=== PATIENT | male | born 1960 | race Caucasian/White ===

== ENCOUNTER 2017-03-07 12:10 | Day surgery (SDC) | payer OTHER ==
[~2017-03-07] VITALS: Ht 172.7 cm; Wt 104.3 kg
[~2017-03-07 12:10] MED LIST: ADVAIR 250-501 EACH INH; LEVOTHYROXINE100 MCG PO; OMEPRAZOLE20 MG PO; PRAVASTATIN SOD20 MG PO; VENTOLIN HFA18 GM INH
--- NOTE | 2017-03-07 15:04 | NUR ---
03/07/17 1504 Liz Lira 1456 - PT ARRIVED TO PACU. MAINTAINING OWN AIRWAY. PT DENIES PAIN AND NAUSEA.
--- NOTE | 2017-04-02 12:15 | OR ---
[facility] [address] [place], [place] [address] Signed DATE OF PROCEDURE: 03/07/17 PREOPERATIVE DIAGNOSES History of esophageal stricture. Episode of food impaction requiring upper endoscopy, January 09, 2017. History of serrated adenoma of colon, 2011. POSTOPERATIVE DIAGNOSES No evidence of esophageal stricture or even inflammation. Stomach and duodenum normal. Diverticulosis of sigmoid and left colon. Polyps x4 of colon (excised). PROCEDURES Esophagogastroduodenoscopy with biopsy. Total colonoscopy to cecum with snare polypectomy x1 and cold morcellation polypectomy x3. SURGEON: Allan Duncan MD. ANESTHESIA: Intravenous sedation, Fentanyl 150 mcg, Versed 7 mg (total). INDICATION This 57-year-old white man is patient of Dr. Palmer Posey and has had problems of dysphagia over time. He has undergone esophageal dilation approximately 5 years ago. He had a food impaction requiring an emergency upper endoscopy on January 09, 2017, had inflammatory changes to the distal esophagus. There was no evidence of Young's epithelium and no eosinophilic esophagitis on biopsies. He has been treated with proton pump inhibitor medication. He recently has no dysphagia at all and has been doing well. He is admitted to undergo upper endoscopy and possible dilation depending on clinical findings at this time. Additionally, he has been known to have a serrated adenoma on colonoscopy in 2011. Surveillance colonoscopy has been recommended. The risks of bleeding, infection, and perforation related to both procedures have been reviewed and he understands and wished to proceed. FINDINGS Upper endoscopy was essentially normal. The esophagus had no evidence of stricture whatsoever. Biopsies were obtained to assess for eosinophilic esophagitis nevertheless. Stomach, duodenum and so forth were normal. CLOtest was negative. On colonoscopy, the prep was good. Complete colonoscopy was undertaken of the cecum. There were 4 small polyps, all excised. There were diverticular changes of sigmoid and left colon. Electronically Signed By: ALLAN DUNCAN MD 04/02/17 1215 PATIENT NAME: CHIKIS MANUEL OPERATIVE REPORT DATE OF : 58 PHYSICIAN: ALLAN DUNCAN MD REPORT #: [id number] REPORT IS CONFIDENTIAL AND NOT TO BE RELEASED WITHOUT AUTHORIZATION [facility] [address] [place], [place] [address] Signed DESCRIPTION OF PROCEDURE The patient was brought to the endoscopy suite and given topical Hurricaine spray hypopharyngeal anesthesia and placed in lateral decubitus position. He was given intravenous sedation to the point of slurred speech and nystagmus. A bite block was placed. The Olympus video upper endoscope was passed by hypopharynx. Vocal cords were normal. Scope was advanced to the esophagus throughout its length and it was entirely normal with no evidence whatsoever of stricture, neoplasm, Young's epithelium, or other problem. The scope was advanced to the stomach which was insufflated with air. Rugal folds were normal as was the pylorus. The pylorus was traversed with the scope and the duodenum was normal. Biopsies were obtained to assess for celiac disease. The scope was withdrawn. Biopsies taken of the antrum for both JUD and pathologic testing. Retroflexed view showed the flap valve to be somewhat loose, but not with a large hiatal hernia in any way. The scope was withdrawn to the distal esophagus. No evidence of stricture neoplasm, Young's epithelium, or cancer was noted. Biopsies were obtained there as well in the midesophagus to assess for eosinophilic esophagitis. The scope was then removed. Plans were then made for colonoscopy. The table was rotated and additional sedation given. Digital rectal examination was performed, which was normal. An Olympus video colonoscope was passed in the rectum and manipulated throughout the colon ultimately intubating the cecum itself. The ileocecal valve and appendiceal orifice were normal. S cope was withdrawn and a small sessile polyp was noted in the ascending colon, which was excised with cold morcellation technique. Snare polypectomy could not be undertaken due to anatomic factors. Scope was further withdrawn and transverse colonic polyp which was small was excised cold snip technique. Further withdrawal of scope showed two other small polyps in the splenic flexure and left colon. Diverticular changes were noted in the sigmoid. The small polyps were excised. Retroflexed view of the rectum was normal. Scope was removed and the patient taken to recovery room in good condition CONCLUDING DIAGNOSES No evidence of stricture neoplasm or other signs of impediment to esophageal swallowing. Dilation not performed at this time. Colon with diverticulosis and small polyps all excised. PLAN We recommend continued use of PPI medication. Recommend high-fiber diet and repeat colonoscopy in 3 years. Electronically Signed By: ALLAN DUNCAN MD 04/02/17 0432 PATIENT NAME: CHIKIS MANUEL OPERATIVE REPORT DATE OF : 58 PHYSICIAN: ALLAN DUNCAN MD REPORT #: [id number] REPORT IS CONFIDENTIAL AND NOT TO BE RELEASED WITHOUT AUTHORIZATION [address] [address] Signed MD VASILE Hoffman/Modl /[id number] cc: Palmer Posey MD Electronically Signed By: ALLAN DUNCAN MD 04/02/17 1215 PATIENT NAME: CHIKIS MANUEL OPERATIVE REPORT DATE OF : 58 PHYSICIAN: ALLAN DUNCAN MD REPORT #: [id number] REPORT IS CONFIDENTIAL AND NOT TO BE RELEASED WITHOUT AUTHORIZATION
== END 2017-03-07 15:35 | disposition home or self-care (01) ==
LOC: OPS 12:10 → DS 12:10 → OPS 13:00 → DS 13:00 → OPS 15:35
PROVIDERS: Surgery
PROC: 0DBL8ZX Excision of Transverse Colon, Via Natural or Artificial Opening Endoscopic, Diagnostic (ICD-10-PCS; 2017-03-07)
PROC: 0DB98ZX Excision of Duodenum, Via Natural or Artificial Opening Endoscopic, Diagnostic (ICD-10-PCS; 2017-03-07)
PROC: 0DB28ZX Excision of Middle Esophagus, Via Natural or Artificial Opening Endoscopic, Diagnostic (ICD-10-PCS; 2017-03-07)
PROC: 0DB38ZX Excision of Lower Esophagus, Via Natural or Artificial Opening Endoscopic, Diagnostic (ICD-10-PCS; 2017-03-07)
PROC: 0DB68ZX Excision of Stomach, Via Natural or Artificial Opening Endoscopic, Diagnostic (ICD-10-PCS; 2017-03-07)
PROC: 0DBM8ZX Excision of Descending Colon, Via Natural or Artificial Opening Endoscopic, Diagnostic (ICD-10-PCS; principal; 2017-03-07 13:00)
PROC: 0DBK8ZX Excision of Ascending Colon, Via Natural or Artificial Opening Endoscopic, Diagnostic (ICD-10-PCS; 2017-03-07 13:00)
DX: Z12.11 Encounter for screening for malignant neoplasm of colon (principal); D12.2 Benign neoplasm of ascending colon; D12.4 Benign neoplasm of descending colon; D12.3 Benign neoplasm of transverse colon; K29.50 Unspecified chronic gastritis without bleeding; K57.30 Diverticulosis of large intestine without perforation or abscess without bleeding; E78.00 Pure hypercholesterolemia, unspecified; K21.9 Gastro-esophageal reflux disease without esophagitis; Z87.891 Personal history of nicotine dependence; Z86.010 Personal history of colon polyps; Z79.899 Other long term (current) drug therapy
CPT/HCPCS: 99152; 99153; J2250; J3010; J7120

== ENCOUNTER 2020-02-27 12:49 | Day surgery (SDC) | payer OTHER ==
[~2020-02-27] VITALS: Ht 172.7 cm; Wt 111.1 kg
--- NOTE | 2020-02-28 16:05 | PATH ---
[facility] [address] [place], [place] [address] Signed SPECIMEN(S): A COLON POLYP AT 45 CM SPECIMEN(S): B COLON POLYP AT 30 CM SPECIMEN(S): C COLON POLYP AT 35 CM SPECIMEN SOURCE: A. COLON POLYP AT 45 CM B. COLON POLYP AT 30 CM C. COLON POLYP AT 35 CM CLINICAL HISTORY: Colonoscopy. History of colon polyps. Postop: Polyps x 3, diverticulosis. MICROSCOPIC DESCRIPTION: Histologic sections of all submitted blocks are examined by light microscopy. These findings, together with the gross examination, support the pathologic diagnosis. FINAL PATHOLOGIC DIAGNOSIS: A. Colon polyp at 45 cm, biopsy: - Tubular adenoma (one fragment). B. Colon polyp at 30 cm, biopsy: - Tubular adenoma (one fragment). C. Colon polyp at 35 cm, biopsy: - Inflamed polypoid colonic mucosa with focal slight adenomatous change and superficial epithelial erosion. JVR:[facility]:C2NR GROSS DESCRIPTION: Three specimens are received in three containers, labeled "ST." A. The specimen, labeled "ST, colon polyp at 45 cm," is received in formalin and consists of one cantrell soft tissue fragment that measures 0.1 cm in greatest dimension. The specimen is entirely submitted in cassette (A1). B. The specimen, labeled "ST, colon polyp at 30 cm," is received in formalin and consists of one cantrell soft tissue fragment that measures 0.7 cm in greatest dimension. The specimen is bisected and entirely submitted in cassette (B1). C. The specimen, labeled "ST, colon polyp at 35 cm," is received in formalin and consists of two cantrell soft tissue fragments that measure 0.2 cm in greatest dimension. The specimen is entirely submitted in cassette (C1). JS (under the direct supervision of a pathologist) PATIENT NAME: CHIKIS MANUEL PATHOLOGY DATE OF : 58 REPORT #: [id number] PHYSICIAN: HOANG PATHOLOGY PCP: CHEN HAY MD REPORT IS CONFIDENTIAL AND NOT TO BE RELEASED WITHOUT AUTHORIZATION [facility] [address] [place], [place] [address] Signed The Gross Description was prepared using a voice recognition system. The report was reviewed for accuracy; however, sound-alike word errors, addition and/or deletions may occur. If there is any question about this report, please contact Client Services. PERFORMING LABORATORY: The technical component was performed by [facility], [address] [place] [address] ([employer] Agent: Zeynep Mccoy MD; CLIA# [id number]). Professional [place] [address] ([employer] Agent: Palmer Beard M.D.). Diagnostician: Palmer Beard MD Pathologist Electronically Signed 02/28/2020 Copies: ~ PATIENT NAME: CHIKIS MANUEL PATHOLOGY DATE OF : 58 REPORT #: [id number] PHYSICIAN: HOANG WAGN PCP: CHEN HAY MD REPORT IS CONFIDENTIAL AND NOT TO BE RELEASED WITHOUT AUTHORIZATION
--- NOTE | 2020-02-29 13:18 | OR ---
[facility] [address] [place], [place] [address] Signed DATE OF OPERATION: SURGEON: Allan Duncan MD PREOPERATIVE DIAGNOSES: 1. History of adenomatous polyps, in February 2017. 2. Ongoing evaluation for possible prostate cancer (PSA 12). POSTOPERATIVE DIAGNOSES: 1. Sigmoid and left-sided diverticulosis. 2. Polyps x3 (45 cm, 35 cm, 30 cm). PROCEDURES: Total colonoscopy to cecum with cold morcellation polypectomy x2 and hot snare polypectomy x1. ANESTHESIA: Intravenous sedation, fentanyl 100 mcg, Versed 7 mg. INDICATION: This 60-year-old white man is a patient of Dr. Posey and known to me from the past having undergone colonoscopy in 2017. At that time, he was noted to have a tubular adenoma of the right colon. He does have family history of colon cancer. His symptom free as regard to colon, though he is under evaluation for elevated PSA level of 12, concerning for prostate cancer. He is here for surveillance colonoscopy understand the risks of bleeding, infection, and perforation. FINDINGS: The prep was adequate. Complete colonoscopy was undertaken of the cecum without question. Had numerous diverticula of the sigmoid and left colon. He had a sessile polyp at 35 cm excised with hot snare polypectomy technique. A small polyp at 45 cm as well as 30 cm excised with cold morcellation technique. There were no other findings of concern. DESCRIPTION OF PROCEDURE: The patient was brought to the endoscopy suite and placed in lateral decubitus position, given intravenous sedation to the point of slurred speech and nystagmus. Digital rectal examination was normal. An Olympus video colonoscope was passed in the rectum and manipulated throughout the colon noting diverticula of the sigmoid and left colon. Scope was ultimately advanced Electronically Signed By: ALLAN DUNCAN MD 02/29/20 1318 PATIENT NAME: CHIKIS MANUEL OPERATIVE REPORT DATE OF : 58 REPORT #: [id number] PHYSICIAN: ALLAN DUNCAN MD PCP: CHEN POSEY MD REPORT IS CONFIDENTIAL AND NOT TO BE RELEASED WITHOUT AUTHORIZATION [facility] [address] [place], [place] [address] Signed to the cecum. Irrigation was undertaken and careful withdrawn, from that point showed no abnormality until approximately 45 cm from the anal verge, this was a small adenomatous appearing polyp based on narrow band imaging, excised with cold morcellation technique. The scope was further withdrawn and diverticula was noted and then at approximately 35 cm, a larger somewhat friable and relatively sessile polyp was noted, this was excised with hot snare polypectomy technique. Additional polyp about 30 cm from the anal verge was noted, this was somewhat smaller and did not have obvious boundaries to it. This was multiple biopsied, likely with complete ablation. Further withdrawal showed only diverticulosis of the sigmoid. Retroflexed view of the rectum was normal. The prostate had been examined and was symmetric in without obvious nodule and not particularly enlarged in a way. Retroflexed view was normal. The scope was removed and the patient was taken to recovery room in good condition. CONCLUDING DIAGNOSES: 1. Polyps x3. 2. Elevated PSA. PLAN: Recommend repeat colonoscopy in 3 years, sooner if clinically indicated. He will return to the ongoing care of Dr. Posey in the meantime. Allan Duncan MD JM/MODL /[id number] cc: Chen Posey MD Copies: CHEN POSEY MD ~ Electronically Signed By: ALLAN DUNCAN MD 02/29/20 1318 PATIENT NAME: CHIKIS MANUEL OPERATIVE REPORT DATE OF : 58 REPORT #: [id number] PHYSICIAN: ALLAN DUNCAN MD PCP: CHEN POSEY MD REPORT IS CONFIDENTIAL AND NOT TO BE RELEASED WITHOUT AUTHORIZATION
== END 2020-02-27 14:30 | disposition home or self-care (01) ==
LOC: OPS 12:49 → DS 12:52 → OPS 14:00
PROVIDERS: Surgery
PROC: 0DBE8ZX Excision of Large Intestine, Via Natural or Artificial Opening Endoscopic, Diagnostic (ICD-10-PCS; 2020-02-27)
PROC: 0DBE8ZZ Excision of Large Intestine, Via Natural or Artificial Opening Endoscopic (ICD-10-PCS; principal; 2020-02-27 14:00)
DX: Z12.11 Encounter for screening for malignant neoplasm of colon (principal); D12.6 Benign neoplasm of colon, unspecified; K63.3 Ulcer of intestine; K57.30 Diverticulosis of large intestine without perforation or abscess without bleeding; C61 Malignant neoplasm of prostate; J45.909 Unspecified asthma, uncomplicated; K21.9 Gastro-esophageal reflux disease without esophagitis; D64.9 Anemia, unspecified; Z79.899 Other long term (current) drug therapy; Z86.010 Personal history of colon polyps; Z87.891 Personal history of nicotine dependence
CPT/HCPCS: 99153; G0500; J2250; J3010; J7121

== ENCOUNTER 2023-08-22 12:45 | Day surgery (SDC) | payer OTHER ==
[~2023-08-22] VITALS: Ht 172.7 cm; Wt 90.9 kg
[2023-08-22 13:24] VITALS: BP 110/62
[2023-08-22 15:00] VITALS: BP 99/56
--- NOTE | 2023-08-22 15:31 | NUR ---
08/22/23 1531 He,Brook Skinner 1446: PATIENT ARRIVED TO PACU DROWSY, BUT AWAKE. DENIES PAIN. 1500: DR. DUNCAN AT BEDSIDE TALKING WITH PATIENT. 1510: DISCHRGE INSTRUCTIONS GIVEN TO PATIENT. PATIENT ASSISTED TO SIT ON BEDSIDE. 1524: PATIENT DRESSED INDEPENDENTLY. STAND BY ASSIST WHILE WALKING TO BATHROOM. PATIENT DISCHARGED TO HOME VIA WHEELCHAIR.
--- NOTE | 2023-08-23 08:43 | OR ---
[facility] [address] [place], [place] [address] Signed DATE OF OPERATION: 08/22/2023 SURGEON: Allan Duncan MD PREOPERATIVE DIAGNOSES: 1. Family history of colon cancer. 2. History of polyps 2019. POSTOPERATIVE DIAGNOSES: 1. Sigmoid diverticulosis. 2. Polyps x3. PROCEDURE: Total colonoscopy to cecum with cold snare polypectomy x1 and cold morcellation polypectomy x2. ANESTHESIA: Intravenous sedation; fentanyl 100 mcg and Versed 6 mg. INDICATION: This 63-year-old white man is a patient of Dr. Marci Mccrary, well known to me from the past. He last underwent colonoscopy in February of 2020. He was noted to have sigmoid and left-sided diverticulosis as well as three polyps at 45, 35 and 30 cm. He does have family history of colon cancer in his father. He is admitted at this time to undergo colonoscopy for surveillance. He currently has no symptoms of bleeding, diarrhea, or constipation. Of note, he has been diagnosed with prostate carcinoma based on elevated PSA and three prostate biopsies. Treatment planning for that is ongoing. DESCRIPTION OF PROCEDURE: The patient was brought to the endoscopy suite and placed in the lateral decubitus position; given intravenous sedation to the point of slurred speech and nystagmus. Digital rectal examination was normal. An Olympus video colonoscope was passed in the rectum and manipulated throughout the colon noting diverticular changes of the sigmoid and left colon. The scope was ultimately advanced to the cecum. There was a less well prepped cecum. Irrigation was undertaken and adequate visualization noted. The scope was then withdrawn and examination showed no sign of abnormality until the left colon where a small polyp was noted, this was excised with cold snare technique. The scope was further withdrawn. Another small polyp was noted, also similarly excised. A sessile polyp, which was Electronically Signed By: ALLAN DUNCAN MD 08/23/23 0843 PATIENT NAME: CHIKIS MANUEL OPERATIVE REPORT DATE OF : 58 REPORT #: [id number] PHYSICIAN: ALLAN DUNCAN MD PCP: MARCI MCCRARY MD REPORT IS CONFIDENTIAL AND NOT TO BE RELEASED WITHOUT AUTHORIZATION [facility] [address] [place], [place] [address] Signed slightly bigger, was excised with cold snare technique at about 40 cm or so. Diverticula are certainly noticed upon withdrawal of the scope more fully. Retroflexed view of the rectum was normal. The scope was removed and the patient was taken to the recovery room in good condition. CONCLUDING DIAGNOSIS: Polyps x3 and diverticulosis. PLAN: Recommend repeat colonoscopy in 3 to 5 years, sooner if symptoms should occur. He will return to the ongoing care of Dr. Mccrary. MD VASILE Hoffman/ARTEMIO /[id number] cc: Marci Mccrary MD Copies: MARCI MCCRARY DMD ~ Electronically Signed By: ALLAN DUNCAN MD 08/23/23 0843 PATIENT NAME: CHIKIS MANUEL OPERATIVE REPORT DATE OF : 58 REPORT #: [id number] PHYSICIAN: ALLAN DUNCAN MD PCP: MARCI MCCRARY MD REPORT IS CONFIDENTIAL AND NOT TO BE RELEASED WITHOUT AUTHORIZATION
--- NOTE | 2023-08-24 09:39 | PATH ---
[facility] [address] [facility] [place], [place] [address] Signed SPECIMEN(S): A DESCENDING POLYP SPECIMEN(S): B COLON POLYP, 40 CM SPECIMEN(S): C COLON POLYP, 35 CM SPECIMEN SOURCE: A. DESCENDING POLYP B. COLON POLYP, 40 CM C. COLON POLYP, 35 CM CLINICAL HISTORY: History of polyps/diverticulosis/family history of polyps FINAL PATHOLOGIC DIAGNOSIS: A. Colon, descending, polypectomy: - Tubular adenoma B. Colon, 40 cm, polypectomy: - Colonic mucosa with no significant pathologic changes C. Colon, 30 cm, polypectomy: - Tubular adenoma BRP MICROSCOPIC EXAMINATION: Histologic sections of all submitted blocks are examined by light microscopy. These findings, together with the gross examination, support the pathologic diagnosis. GROSS DESCRIPTION: A. The specimen, labeled and designated "Taillon, descending polyp," is received in formalin and consists of one cantrell soft tissue fragment, 0.4 cm. Entirely submitted in (A1). B. The specimen, labeled and designated "Taillon, colon polyp at 40 cm," is received in formalin and consists of three cantrell soft tissue fragments, ranging from 0.2-0.3 cm. Entirely submitted in (B1). C. The specimen, labeled and designated "Taillon, colon polyp at 35 cm," is received in formalin and consists of one cantrell soft tissue fragment, 0.3 cm. Entirely submitted in (C1). VB (under the direct supervision of a pathologist) The Gross Description was prepared using a voice recognition system. The report was reviewed for accuracy; however, sound-alike word errors, addition and/or deletions may occur. If there is any question about this report, please contact Client Services. PATIENT NAME: CHIKIS MANUEL PATHOLOGY DATE OF : 58 REPORT #: [id number] PHYSICIAN: HOANG WANG PCP: MARCI MCCRARY MD REPORT IS CONFIDENTIAL AND NOT TO BE RELEASED WITHOUT AUTHORIZATION [facility] [address] [place], [place] [address] Signed ADDITIONAL NOTES: Immunohistochemical and/or in situ hybridization studies if performed in this case included appropriate positive controls that reacted as expected. This test was developed and its performance characteristics determined by [facility]. It has not been cleared or approved by the U.S. Food and Drug Administration. The FDA has determined that such clearance or approval is not necessary. This test is used for clinical purposes. It should not be regarded as investigational or for research. [facility] is certified under the Clinical Laboratory Improvement Amendments of 1988 (CLIA) as qualified to perform high complexity clinical laboratory testing. PERFORMING LABORATORY: Technical component was performed by [facility], [address] [place] [address] (CLIA# [id number]). Professional interpretation was performed by [facility], [address] [place] [address] (CLIA#: [id number]). Diagnostician: Leonid Babb MD Pathologist Electronically Signed 08/24/2023 Copies: ~ PATIENT NAME: CHIKIS MANUEL PATHOLOGY DATE OF : 58 REPORT #: [id number] PHYSICIAN: HOANG WANG PCP: MARCI MCCRARY MD REPORT IS CONFIDENTIAL AND NOT TO BE RELEASED WITHOUT AUTHORIZATION
== END 2023-08-22 15:24 | disposition home or self-care (01) ==
LOC: DS 12:45 → OPS 12:45 → DS 12:50 → OPS 14:00 → DS 14:00 → OPS 15:24
PROVIDERS: ATTEND Surgery
PROC: 0DBM8ZZ Excision of Descending Colon, Via Natural or Artificial Opening Endoscopic (ICD-10-PCS; 2023-08-22)
PROC: 0DBG8ZX Excision of Left Large Intestine, Via Natural or Artificial Opening Endoscopic, Diagnostic (ICD-10-PCS; principal; 2023-08-22 14:00)
DX: Z12.11 Encounter for screening for malignant neoplasm of colon (principal); D12.4 Benign neoplasm of descending colon; D12.6 Benign neoplasm of colon, unspecified; K57.30 Diverticulosis of large intestine without perforation or abscess without bleeding; J45.909 Unspecified asthma, uncomplicated; C61 Malignant neoplasm of prostate; Z79.899 Other long term (current) drug therapy; Z86.010 Personal history of colon polyps
CPT/HCPCS: 88305; 99153; G0500; J2250; J3010; J7121

== ENCOUNTER 2024-04-07 22:28 | Emergency (ER) | payer MEDICARE, OTHER ==
[~2024-04-07] VITALS: Ht 172.7 cm; Wt 95.2 kg
[2024-04-07] MEDS ORDERED: MORPHINE SULFATE 4 MG/ML VIAL IV ONE (22:45)
[2024-04-07] MEDS ORDERED: SODIUM CHLORIDE 0.9% 1,000 ML IV ONE (22:45)
[2024-04-07] MEDS ORDERED: ondansetron HCL 4 MG/2 ML VIAL IV ONE (22:45)
[2024-04-07 22:56] LABS: HEMATOCRIT 36.2 % (35.0-50.0); HEMOGLOBIN 12.3 g/dL (12.0-18.0); MCHC 34.1 g/dl (30-36); MCV 99.7 fl (81-99); PLATELET COUNT 223 K/uL (140-440); RBC 3.63 M/ul (4.3-5.7); RDW 15.7 (10.5-15.0)
[2024-04-07] MEDS ORDERED: HYDROmorphone HCL 1 MG/ML SYR IV PRN (23:15)
[2024-04-07 23:24] LABS: BANDS, MANUAL DIFF 2; EOSINOPHILS, MANUAL DIFF 3; LYMPHOCYTES, MANUAL DIFF 6; MONOCYTES, MANUAL DIFF 6; NEUTROPHILS, MANUAL DIFF 83
[2024-04-07 23:26] LABS: ALBUMIN 3.9 g/dL (3.4-5.0); ALBUMIN/GLOBULIN RATIO 1.18 (1.1-2.4); BILIRUBIN, TOTAL 0.6 ng/dL (0.2-1.0); CALCIUM 8.6 mg/dL (8.5-10.1); PROTEIN, TOTAL 7.2 g/dL (6.4-8.2)
[2024-04-07] MEDS ORDERED: KETOROLAC TROMETHAMINE 30 MG/ML VIAL IV ONE (23:30)
[2024-04-07] MEDS ORDERED: POTASSIUM CHLORIDE 10 MEQ TABCR PO ONE (23:45)
[2024-04-07] MEDS ORDERED: PROCHLORPERAZINE EDISYLATE 10 MG/2 ML VIAL IV ONE (23:45)
[2024-04-07] MEDS ORDERED: fentaNYL citrate 100 MCG/2 ML VIAL IV ONE (23:45)
[2024-04-08 00:16] LABS: BILIRUBIN, URINE NEGATIVE (negative); BLOOD/HGB, URINE NEGATIVE (Negative); KETONE, URINE NEGATIVE (Negative); LEUK ESTERASE, URINE NEGATIVE (negative); NITRITE, URINE NEGATIVE (negative)
[2024-04-08] MEDS ORDERED: ONDANSETRON ODT8 MG PO ×2 (01:39)
[2024-04-08] MEDS ORDERED: HYDROCODON-ACE1 EA10 PO ×2 (01:39)
[2024-04-08] MEDS ORDERED: ONDANSETRON 4 MG HOME.PACK SL ONE (02:00)
[2024-04-08] MEDS ORDERED: HYDROCODONE BIT/ACETAMINOPHEN 5/325 MG 1 TAB HOME.PACK PO ONE (02:00)
[2024-04-08 02:21] VITALS: BP 155/75
[2024-04-09] MEDS ORDERED: OMEPRAZOLE40 MG PO ×2 (07:37)
[2024-04-09] MEDS ORDERED: VITAMIN B-1100 MG PO ×2 (07:38)
[2024-04-09] MEDS ORDERED: FOLIC ACID1 MG PO ×2 (07:38)
[2024-04-09] MEDS ORDERED: VITAMIN B-121000 MCG PO ×2 (07:38)
[2024-04-09] MEDS ORDERED: VENTOLIN HFA18 GM INH ×2 (14:00)
== END 2024-04-08 02:10 | disposition home or self-care (01) ==
LOC: ED 22:28
PROVIDERS: Family Medicine
DX: K80.50 Calculus of bile duct without cholangitis or cholecystitis without obstruction (principal); K82.8 Other specified diseases of gallbladder; R16.1 Splenomegaly, not elsewhere classified; J44.9 Chronic obstructive pulmonary disease, unspecified; Z87.891 Personal history of nicotine dependence; Z79.899 Other long term (current) drug therapy
CPT/HCPCS: 36415; 74177; 76705; 80053; 81003; 83690; 85025; 96361; 96375; 99284-25; A9270; J0780; J1170; J1885; J2270; J2405; J7030

== ENCOUNTER 2024-04-08 12:18 | Observation (INO) | payer MEDICARE, OTHER ==
[~2024-04-08] VITALS: Ht 172.7 cm; Wt 97.1 kg
[~2024-04-08 12:18] MED LIST changes: +HYDROCODON-ACE1 EA10 PO; +ONDANSETRON ODT8 MG PO
--- OUTSIDE RECORDS SUMMARY | 2024-04-08 12:24 | XMS ---
PreManage Notification: CHIKIS MANUEL Security Arch Support Technician Events No recent Security Events currently on file CRITERIA MET - [facility] - 2 Visits in 30 Days CARE PROVIDERS -, [facility] Dentist: Ticket Puller [facility] [place] PHONE: [phone] -[place]- Dentist: Ticket Puller [facility] PHONE: [phone] Elio has no Care Guidelines for this patient. Freddie VISIT COUNT (12 MO.) [address] [place] [address] TOTAL 2 NOTE: Visits indicate total known visits. ED/UCC VISIT TRACKING (12 MO.) 04/08/2024 12:18 [facility] [place] TYPE: Emergency COMPLAINT: - ABDOMINAL PAIN 04/07/2024 22:28 [facility] [place] TYPE: Emergency COMPLAINT: - ABD PAIN INPATIENT VISIT TRACKING (12 MO.) No inpatient visits to display in this time frame [email or web address]
[2024-04-08] MEDS ORDERED: CEFTRIAXONE/SODIUM CHLORIDE 2 GM/100 ML PIGGYBACK IV ONE (13:15)
[2024-04-08] MEDS ORDERED: LACTATED RINGER'S 1,000 ML IV PRN (13:15)
[2024-04-08] MEDS ORDERED: HYDROmorphone HCL 1 MG/ML SYR IV PRN ×3 (13:15→22:00)
[2024-04-08 13:22] LABS: BASOPHILS 0.3 % (0-2); EOSINOPHILS 0.9 % (0-6); HEMATOCRIT 37.3 % (35.0-50.0); HEMOGLOBIN 12.9 g/dL (12.0-18.0); LYMPHOCYTES 3.3 % (24-44); MCH 34.5 (27-36); MCHC 34.7 g/dl (30-36); MCV 99.4 fl (81-99); MONOCYTES 6.6 % (0-12); NEUTROPHILS 88.9 % (39-80); PLATELET COUNT 224 K/uL (140-440); RBC 3.75 M/ul (4.3-5.7); RDW 15.5 (10.5-15.0)
[2024-04-08 13:28] LABS: INR 1.04 (0.80-1.30); PROTIME 13.2 Sec (11.2-14.2)
[2024-04-08 13:31] LABS: PARTIAL THROMBOPLASTIN TIME 32.7 Sec (22.9-41.3)
[2024-04-08 13:33] LABS: ALBUMIN 3.6 g/dL (3.4-5.0); ALBUMIN/GLOBULIN RATIO 1.09 (1.1-2.4); ANION GAP 13.7 (7-21); BUN/CREATININE RATIO 6.38 (6.0-28.6); CALCIUM 8.3 mg/dL (8.5-10.1); CREATININE, SERUM 0.94 mg/dL (0.70-1.30); POTASSIUM 3.7 mmol/L (3.5-5.1); PROTEIN, TOTAL 6.9 g/dL (6.4-8.2)
[2024-04-08 15:11] LABS: BILIRUBIN, URINE NEGATIVE (negative); BLOOD/HGB, URINE NEGATIVE (Negative); KETONE, URINE NEGATIVE (Negative); LEUK ESTERASE, URINE NEGATIVE (negative); NITRITE, URINE NEGATIVE (negative); PH, URINE 5.5 (5-7)
[2024-04-08] MEDS ORDERED: ACETAMINOPHEN 500 MG TAB PO ONE (16:45)
[2024-04-08] MEDS ORDERED: ACETAMINOPHEN 325 MG TAB PO PRN ×2 (17:15→21:45)
[2024-04-08] MEDS ORDERED: ondansetron HCL 4 MG/2 ML VIAL IV PRN ×2 (17:15→21:45)
[2024-04-08] MEDS ORDERED: SODIUM CHLORIDE 0.9% 1,000 ML IV SCH (17:15)
[2024-04-08 17:54] VITALS: BP 129/65
--- NOTE | 2024-04-08 18:34 | NUR ---
PATIENT ADMITTED TO MED SURG. PATIENT IS ON TELE 7, PER ED ORDER, PULSE IS 86, TEMP IS 100.5 ORAL POST TYLENOL UPON ARRIVAL AND 100.2 AT 30 MINUTE RECHECK. PATIENT IS USING I/S, RT IN TO SEE PATIENT AND DISCUSS HOME INHALERS. PATIENT REPORTS RUQ PAIN IS LESSENING TO 7/10 BUT GOT NO RELIEF WITH PREVIOUS IV DILAUDID. SCD'S ARE ON, LR @ 125.
--- NOTE | 2024-04-08 19:08 | NUR ---
C/O ABD PAIN 03/02, MEDICATED WITH DIALUDID 0.5MG IV, AWAKE, WATCHING TV, TURNS AND REPOSITIONS IN BED. IVF INFUSING, TELE IN PLACE
--- NOTE | 2024-04-08 19:35 | NUR ---
PHONE CALL TO MD BY URGENT CARE. TELEPHONE ORDERS RECEIVED AND REPEATED BACK TO VERIFY FOR IVF, PAIN MEDICATION, AND NEB TREATMENTS.
[2024-04-08] MEDS ORDERED: KETOROLAC TROMETHAMINE 30 MG/ML VIAL IV PRN (19:45)
[2024-04-08] MEDS ORDERED: LACTATED RINGER'S 1,000 ML IV SCH (19:45)
[2024-04-08] MEDS ORDERED: BUDESONIDE 0.5 MG/2 ML VIAL INH SCH (20:00)
[2024-04-08] MEDS ORDERED: ALBUTEROL/IPRATROPIUM 3 ML NEB INH SCH (20:00)
[2024-04-08 21:15] VITALS: BP 126/62
[2024-04-08 21:17] VITALS: BP 126/62
--- NOTE | 2024-04-08 21:35 | NUR ---
Pt awaker, alert and oriented. c/o RUQ pain, area tender, letty. temp 101.5 oral. 3 covers removed, room temp decreased to 68 from 74. Repeat back done with IS 10x's, tolered well. coop with assessment and vitals. on clear liquids, tolerating well, no s/sx n/v. aware of NPO after midnight. On room air, lungs clear bilat, dim at bases, received nebs earlier on shift. using IS appropriately. IVF infusing RAC, scds in place. Dr Rowe notified of pts temp 101.5, pt has orders for motrim/toradol and IV/po Tylenol.
--- NOTE | 2024-04-08 21:39 | NUR ---
will check temp again in 1-2hr
[2024-04-08] MEDS ORDERED: IBUPROFEN 600 MG TAB PO PRN (21:45)
[2024-04-08] MEDS ORDERED: ACETAMINOPHEN 1,000 MG/100 ML VIAL IV PRN (21:45)
--- NOTE | 2024-04-08 22:44 | NUR ---
temp 98.7 oral, medicated with Tylenol per abd pain. tolerating liquids well. scds inplace, tele#[address]
[2024-04-09] VITALS (12 sets, daily range): BP systolic 99–132; BP diastolic 47–74
--- NOTE | 2024-04-09 01:56 | NUR ---
uses call light, awake, alert and oriented, on room air. clear lungs, coop with vitals and tursning. c/o 8/10 RUQ abd pain, medicated with Dilaudid 0.6mg IV. no c/o n/v. and soft, tender R sided. ERNESTINA. uses urinal, voiding dark colored urine. NPO as of midnight. did own oral care. preop-post op expectations and personal questins asked by pt. answared to his comfort. SCDs in place. tele#[address] Dry non productive cough present at times
--- NOTE | 2024-04-09 03:40 | NUR ---
Resting, eyes closed, no s/sx distress, IVF infusing, Tele#[address] SCD's on, NPO
--- NOTE | 2024-04-09 04:23 | NUR ---
Awake, c/o 8/10 RUQ abd pain, abd soft, letty, tender. warm pad to area, medicated with Toradol. NPO tolerating well, does own oral care
[2024-04-09 05:25] LABS: BASOPHILS 0.2 % (0-2); EOSINOPHILS 0.7 % (0-6); HEMATOCRIT 31.9 % (35.0-50.0); HEMOGLOBIN 11.2 g/dL (12.0-18.0); LYMPHOCYTES 5.1 % (24-44); MCH 34.5 (27-36); MCHC 35.2 g/dl (30-36); MCV 98.2 fl (81-99); MONOCYTES 6.5 % (0-12); NEUTROPHILS 87.5 % (39-80); PLATELET COUNT 159 K/uL (140-440); RBC 3.25 M/ul (4.3-5.7); RDW 15.4 (10.5-15.0)
[2024-04-09 05:40] LABS: ALBUMIN 2.9 g/dL (3.4-5.0); ALBUMIN/GLOBULIN RATIO 0.97 (1.1-2.4); ANION GAP 11.4 (7-21); CALCIUM 8.1 mg/dL (8.5-10.1); CREATININE, SERUM 0.9 mg/dL (0.70-1.30); POTASSIUM 3.4 mmol/L (3.5-5.1); PROTEIN, TOTAL 5.9 g/dL (6.4-8.2)
--- NOTE | 2024-04-09 06:02 | NUR ---
Pt awake, NPO, tolerating well, does own oral care. c/o h/a. medicated with Tylenol. no c/o abd pain, no n/v. IVF infusing. Has voided QS light tea colored urine. turns and repositions self in bed.
[2024-04-09] MEDS ORDERED: OXYCODONE/APAP 5/325 TAB PO PRN (07:00)
[2024-04-09] MEDS ORDERED: DEXTROSE 5% - LACTATED RINGERS 1,000 ML IV SCH (07:00)
[2024-04-09] MEDS ORDERED: HYDROmorphone HCL 1 MG/ML SYR IV PRN (07:00)
[2024-04-09] MEDS ORDERED: ondansetron HCL 4 MG/2 ML VIAL IV PRN ×2 (07:00→09:15)
[2024-04-09] MEDS ORDERED: PROCHLORPERAZINE EDISYLATE 10 MG/2 ML VIAL IV PRN (07:00)
[2024-04-09] MEDS ORDERED: OMEPRAZOLE40 MG PO ×2 (07:37)
[2024-04-09] MEDS ORDERED: VITAMIN B-1100 MG PO ×2 (07:38)
[2024-04-09] MEDS ORDERED: FOLIC ACID1 MG PO ×2 (07:38)
[2024-04-09] MEDS ORDERED: VITAMIN B-121000 MCG PO ×2 (07:38)
--- NOTE | 2024-04-09 07:55 | NUR ---
REPORT RECIEVED FROM GRIS SINHA. PT AWAKE AND RESTING IN BED. SCDS RUNNING. LR RUNNING @ 125 ML/HR. DENIES ANY NEEDS, CALL LIGHT IN REACH
--- NOTE | 2024-04-09 08:32 | CONS ---
[facility] [address], [place] [address] Signed DATE OF CONSULTATION: 04/09/2024 CHIEF COMPLAINT: Right upper quadrant abdominal pain. 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 For almost two months now, he has been having intermittent, but worsening right upper quadrant abdominal pain. He said it is worse with fatty meals. He came to the emergency room and his white count was theoretically concerning and his ultrasound showed some sludge, but otherwise unremarkable. He was allowed to go home with some hydrocodone. He came back a few hours later with worsening pain. Repeat ultrasound shows again some small sludge in the gallbladder with a distended gallbladder. The wall was borderline at 3.5 mm, but the common bile duct is normal at 3.3 mm, but he did have a positive Jha sign. He also been recently diagnosed with prostate cancer and he is awaiting his radical prostatectomy at [facility] in May of this year. He has put off because of this pain in the right upper quadrant. The CT scan of his chest, abdomen, and pelvis in November did not show any metastatic disease. He had some chronic bilateral lower lobe pneumatoceles and his spleen is slightly enlarged clear back to 2011. His CT scan on the of this month did show a distended gallbladder and again the spleen about 16 cm. Given his clinical course, and I have been asked to admit him as a general surgeon on-call, he has received Rocephin, Flagyl, and IV fluids overnight. He has had a little bit of pain control as well. This morning, he is doing well and watching TV. He is still having pain in the right upper quadrant. PAST MEDICAL HISTORY: Asthma, COPD, prostate cancer, left-sided diverticulosis, a small duodenal diverticulum, and gastroesophageal reflux disease. PAST SURGICAL HISTORY: Includes upper endoscopy with dilation of the esophagus at age 61 [address] Alvarado. He has had multiple teeth extractions. SOCIAL HISTORY: He used to smoke about a pack a month, but he has quit. He has a drink once in a while. He is a retired pest control agent. He is now a , where his of pancreatic cancer. He has a stepson in [place]. His sister Serena Adame lives in [place], [place] at . I believe his son lives in town as well. Dr. Marci Mccrary's is his primary care provider. He prefers the [facility]. FAMILY HISTORY: None. Electronically Signed By: TRACEE VILLEGAS MD 04/09/24 0832 PATIENT NAME: CHIKIS MANUEL CONSULTATION DATE OF : 58 REPORT #: [id number] PHYSICIAN: TRACEE VILLEGAS MD PCP: MARCI MCCRARY MD REPORT IS CONFIDENTIAL AND NOT TO BE RELEASED WITHOUT AUTHORIZATION [facility] [address], [place] [address] Signed REVIEW OF SYSTEMS: He talked about awaiting his prostatectomy in May this year because of the right upper quadrant abdominal pain. ALLERGIES: None. MEDICATIONS: Zofran and [place] Advair. PHYSICAL EXAMINATION: VITAL SIGNS: His blood pressure is 105/47, heart rate 83, respiratory rate 16, temperature is 98.1, and he is 97% on room air. He is 5 feet 8 inches tall at 97 kg with a body mass index of 32. GENERAL: Chikis is a 64-year-old gentleman, who is lying supine in his hospital bed, watching TV. He appears to be in no acute distress. He is not jaundiced. He has multiple teeth missing. LUNGS: Clear to auscultation bilaterally. HEART: Regular rate and rhythm without murmurs. ABDOMEN: Soft and flat, but he is tender in the right upper quadrant over the gallbladder and he has a small reducible umbilical hernia. LABORATORY DATA: His white blood count was 8.5, it is now 9.5; his hemoglobin was 12.9, it is now 11.2; his mean cell volume is a little up at 99; neutrophils are 87, and platelets are good at 159. Electrolytes are good. His total bilirubin is 1.0, AST 16, ALT 20, alkaline phosphatase is 76, and albumin is 2.9. Urinalysis is negative. His INR was 1.0. Lactic acid was 1. His blood cultures are pending. RADIOGRAPHIC STUDIES: CT scan of the chest, abdomen, and pelvis in November of this year did not show any metastatic disease from his prostate cancer. He has chronic bilateral lower lobe pneumatoceles and slightly increased size of his spleen clear back to 2011. CT scan of abdomen and pelvis yesterday showed his distended gallbladder and spleen at 16 cm. Chest x-ray was unremarkable. The two ultrasounds showed small amount of sludge with a positive Jha sign. The gallbladder wall is a little thick at 3.5 mm and the common bile duct 3.3 mm. ASSESSMENT AND PLAN: Chikis is a 64-year-old gentleman, who presents with cholecystitis and cholelithiasis in the form of sludge. He has been admitted, given IV fluids and pain control along with his antibiotics. I reviewed with him the above findings. I brought a brochure today and showed him the location and function of the gallbladder. We discussed laparoscopic versus open cholecystectomy. He understands expected intraop and postop course. There Electronically Signed By: TRACEE VILLEGAS MD 04/09/24 0832 PATIENT NAME: CHIKIS MANUEL CONSULTATION DATE OF : 58 REPORT #: [id number] PHYSICIAN: TRACEE VILLEGAS MD PCP: MARCI MCCRARY MD REPORT IS CONFIDENTIAL AND NOT TO BE RELEASED WITHOUT AUTHORIZATION [facility] [address], [place] [address] Signed is risk including, but not limited to bleeding, infection, scarring, change in contour the skin, damage to bowel, damage to main bile duct, incisional hernias and other unforeseen comorbidities. We will go ahead and used his umbilical hernia to place our trocar. We will close that primarily on the way out. He should be recovered in time to have his prostatectomy in May. He has expressed understanding and would like to proceed with surgery later today. Tracee Villegas MD ALB/MODL /[id number] cc: MD Marci Sr MD Copies: TRACEE VILLEGAS MD, ROBERT D DMD ~ Electronically Signed By: TRACEE VILLEGAS MD 04/09/24 0832 PATIENT NAME: CHIKIS MANUEL CONSULTATION DATE OF : 58 REPORT #: [id number] PHYSICIAN: TRACEE VILLEGAS MD PCP: MARCI MCCRARY MD REPORT IS CONFIDENTIAL AND NOT TO BE RELEASED WITHOUT AUTHORIZATION
[2024-04-09] MEDS ORDERED: ENOXAPARIN SODIUM 40 MG/0.4 ML SYR SUB-Q SCH (09:00)
[2024-04-09] MEDS ORDERED: CEFTRIAXONE/SODIUM CHLORIDE 2 GM/100 ML PIGGYBACK IV SCH (09:00)
[2024-04-09] MEDS ORDERED: PANTOPRAZOLE SODIUM 40 MG/10 ML VIAL IV SCH (09:00)
[2024-04-09] MEDS ORDERED: ROCURONIUM BROMIDE 50 MG/5 ML SYR ONE (09:10)
[2024-04-09] MEDS ORDERED: propofoL 200 MG/20 ML VIAL ONE (09:10)
[2024-04-09] MEDS ORDERED: ondansetron HCL 4 MG/2 ML VIAL ONE (09:10)
[2024-04-09] MEDS ORDERED: KETOROLAC TROMETHAMINE 30 MG/ML VIAL ONE (09:10)
[2024-04-09] MEDS ORDERED: DEXAMETHASONE SOD PHOS 4 MG/ML VIAL ONE (09:10)
[2024-04-09] MEDS ORDERED: LIDOCAINE HCL 1% 30 ML SDV ONE ×2 (09:11→09:25)
[2024-04-09] MEDS ORDERED: KETAMINE in NS 50 MG/5 ML SYR ONE (09:11)
[2024-04-09] MEDS ORDERED: dexmedeTOMIDine HCl 200 MCG/2 ML VIAL ONE (09:11)
[2024-04-09] MEDS ORDERED: IBLOOD GLUCOSE TEST STRIP 1 EA TEST VI PRN (09:15)
[2024-04-09] MEDS ORDERED: NALOXONE HCL 0.4 MG SYR IV PRN (09:15)
[2024-04-09] MEDS ORDERED: fentaNYL citrate 50 MCG/ML SDV IV PRN (09:15)
[2024-04-09] MEDS ORDERED: SUGAMMADEX SODIUM 200 MG/2 ML ML ONE (09:16)
[2024-04-09] MEDS ORDERED: iopamidoL 30 ML VIAL ONE (09:24)
[2024-04-09] MEDS ORDERED: SODIUM CHLORIDE 0.9% 40 ML IV ONE (09:25)
[2024-04-09] MEDS ORDERED: BUPIVACAINE HCL 0.25% 50 ML MDV ONE (09:30)
--- NOTE | 2024-04-09 09:30 | NUR ---
PT OFF FLOOR WITH RN BRITTNY FOR SURGERY
--- NOTE | 2024-04-09 10:06 | NUR ---
UR CLINICAL REVIEW: 2 MN FOR VERSALUS-MEETS OBS CRITERIA FOR CHOLECYSTITIS MEDICARE OBS 04/09/24 @ 0716 WILL UPDATE REG NO AUTH REQUIRED PER MEDICARE GUIDELINES TO OR TODAY. DISCHARGE PENDING RECOVERY 04/10/24
[2024-04-09] MEDS ORDERED: ACETAMINOPHEN 1,000 MG/100 ML VIAL ONE (10:21)
[2024-04-09] MEDS ORDERED: LACTATED RINGER'S 1,000 ML IV ONE (11:04)
--- NOTE | 2024-04-09 11:59 | NUR ---
04/09/24 1159 Arminda Estrada 1152-PATIENT ARRIVED TO PACU ON 6L MASK NONAROUSABLE ORAL AIRWAY IN PLACE RR EVEN. IVF INFUSING SR/ST HR 90'S.
--- NOTE | 2024-04-09 13:11 | NUR ---
PT RESTING IN BED. SIPPING ON CLEAR LIQUIDS. SCDS RUNNING. D5 LR RUNNING @125. CPOX ON. 94% RA 79 HR. ICE PACK ON ABD. SHIFT ASSESSMENT COMPLETE. MEDICATIONS ADMIN PER EMAR FOR 01/30 PAIN. DENIES ANY FURTHER NEEDS, CALL LIGHT IN REACH
--- NOTE | 2024-04-09 13:59 | NUR ---
VITALS COMPLETE. DENIES ANY NEEDS AT THIS TIME, CALL LIGHT IN REACH
[2024-04-09] MEDS ORDERED: VENTOLIN HFA18 GM INH ×2 (14:00)
--- NOTE | 2024-04-09 14:00 | NUR ---
MED REC COMPLETE
--- NOTE | 2024-04-09 14:02 | NUR ---
PT NOT AVAILABLE FOR VISIT. PROVIDED PRAYER.
--- NOTE | 2024-04-09 14:45 | NUR ---
VITALS COMPLETE. MEDICATION ADMIN PER EMAR. C/O PAIN 6/10 DANIAL CM IN ROOM. DENIES ANY NEEDS, CALL LIGHT IN REACH
--- NOTE | 2024-04-09 15:00 | NUR ---
Spoke with Margarito. He states he is already feeling better following surgery. He is a as his last year. He lives in a single story home. Pt plans on dc tomorrow as he discussed with Dr. Rowe. Pt drives and is retired. He denies any financial issues. He does all his own house hold tasks. He denies all needs. Does not use any DME.
--- NOTE | 2024-04-09 15:54 | NUR ---
VITALS COMPLETE. LUNCH TRAY REMOVED FROM ROOM. CALL LIGHT IN REACH
--- NOTE | 2024-04-09 16:06 | NUR ---
PT RESTING IN BED. C/O 01/30 PAIN. MEDICATIONS ADMIN PER EMAR. DENIES ANY NEEDS AT THIS TIME. CALL LIGHT IN REACH
--- NOTE | 2024-04-09 16:54 | NUR ---
pt resting in bed. urinal emptied 425 ml of yellow urine out. denies any needs at this time, call light in reach
--- NOTE | 2024-04-09 18:53 | OR ---
[facility] [place] [facility] [address], [place] [address] Signed DATE OF OPERATION: 04/09/2024 SURGEON: Tracee Villegas MD PREOPERATIVE DIAGNOSES: Yttjj-fs-nolcjbr cholecystitis, cholelithiasis (sludge). POSTOPERATIVE DIAGNOSES: Oebbm-zs-ftkygfy cholecystitis with cholelithiasis with 1 cm stone x1 and sludge. PROCEDURES: 1. Laparoscopic cholecystectomy without intraoperative cholangiogram (prolonged and difficult of 1 hour and 30 minutes). 2. Subhepatic drain placement. ESTIMATED BLOOD LOSS: 20 mL. FINDINGS: Margarito had a very thickened gallbladder wall. He had tremendous edema including the triangle of Calot. Even the duodenum was up onto the gallbladder, we had to very carefully and bluntly dissect that down. We needed a second nurse and a fan retractor to get down to the bottom of the gallbladder. It was very slow meticulous dissection. It took 1 hour and 30 minutes, which is well over 45 minutes going to what we would normally take in addition we needed a second nurse. In this way, it was prolonged and difficult. INDICATIONS: Margarito is a 64-year-old gentleman, who has been diagnosed with prostate cancer. He is getting ready to have his radical prostatectomy at our [facility]. He had a CT scan of the chest, abdomen, and pelvis in November of this year, which did not show any metastatic disease. He has chronic splenomegaly with the spleen about 16 cm in diameter. The last month and half, maybe two months he has been having intermittent but increasing right upper quadrant abdominal pain, made worse after he eats. He came to the emergency room twice within about 12 hours or so. His white count, liver function tests were normal. The chest x-ray was unremarkable. CT scan showed his distended gallbladder and the spleen at about 16 cm. He had two ultrasounds done which showed some small sludge, positive Jha sign and gallbladder wall slightly thickened at 3.5 mm and common bile duct normal at 3.3 mm. I have been asked to admit him last night as a general surgeon on-call. He received IV fluids, Rocephin, Flagyl and pain control. Electronically Signed By: TRACEE VILLEGAS MD 04/09/24 1853 PATIENT NAME: MARGARITO MANUEL OPERATIVE REPORT DATE OF : 58 REPORT #: [id number] PHYSICIAN: TRACEE VILLEGAS MD PCP: MARCI MCCRARY MD REPORT IS CONFIDENTIAL AND NOT TO BE RELEASED WITHOUT AUTHORIZATION [facility] [place] [facility] [address], [place] [address] Signed This morning he actually was doing better, but still had tenderness right over his gallbladder. I gave him our brochure on the gallbladder. We went through it page by page. He understands the location and function of the gallbladder. We discussed laparoscopic versus open cholecystectomy. He understands the expected intraop and postop course. There is risk including, but not limited to bleeding, infection, scarring, change in contour of the skin, damage to bowel, damage to main bile duct, incisional hernias and other unforeseen comorbidities. In addition, on physical exam, he does have a small umbilical hernia. We always place our trocar through the umbilical hernia in that case we will just close that primarily at the end of the case with Prolene suture. He had expressed understanding, wished to proceed. PROCEDURE IN DETAIL: Margarito was taken to the operating room and placed in the supine position under general endotracheal tube anesthesia. He was already on preoperative antibiotics along with subcutaneous Lovenox. SCDs were in place. He was prepped and draped in the usual sterile fashion. All trocars were placed in usual positions under direct visualization of camera without difficulty. His omentum was adherent to this rather distended gallbladder. It took a few minutes mostly with blunt dissection, but some very judicious cautery as well to get the omentum down and out away along with the duodenum. We had a second nurse scrub in and we used our fan retractor through the midline to help hold the duodenum and transverse colon down and out away. We very carefully dissected out the triangle of Calot along the cystic artery and the cystic duct. He had tremendous inflammatory changes. We just had a short amount of cystic duct to work with. Therefore we elected not to perform his intraoperative cholangiogram. We secured that with a PDS Endoloop and two clips were placed across the cystic duct stump to apolinar its location. We then very slowly and carefully took the gallbladder off the gallbladder fossa with the help of the cautery. There was tremendous edema and inflammatory changes. Eventually, we had the gallbladder free and into our EndoCatch bag. We irrigated out the right upper quadrant to help as clear as possible. We brought in a #7 flat Rory drain and we placed it into the gallbladder fossa and out the lateral right subcostal margin. It was held in place at the skin with a 2-0 nylon suture. We then used our laparoscopic suturing device to pass 0-Vicryl suture on either side of the fascia of the subxiphoid and mid epigastric trocar sites. These were tied down to close the fascia primarily. After this, all the gas was allowed to escape and all the trocars were removed along with the gallbladder. We found that indeed he had one oval shaped gallstone about 1 cm in diameter. He also had quite a bit of dark, nasty sludge in his gallbladder. We had taken pictures of the gallbladder for photodocumentation. We then closed his umbilical fascial defect transversely with interrupted [id number] and simple #1 and 0 Prolene sutures. Local anesthetic was injected into all trocar sites. Each trocar site was irrigated and suctioned out until clear. The umbilical skin was held back down the midline with an interrupted 2-0 PDS suture. Skin and dermis were reapproximated with interrupted 3-0 subcuticular Monocryl Electronically Signed By: TRACEE VILLEGAS MD 04/09/24 1853 PATIENT NAME: MARGARITO MANUEL OPERATIVE REPORT DATE OF : 58 REPORT #: [id number] PHYSICIAN: TRACEE VILLEGAS MD PCP: MARCI MCCRARY MD REPORT IS CONFIDENTIAL AND NOT TO BE RELEASED WITHOUT AUTHORIZATION [facility] [place] [facility] [address], [place] [address] Signed sutures. Dry gauze and tape were then applied to all incisions. A bulb suction was placed on into the drain. After this, Margarito was awakened from his anesthesia, extubated in the OR, and taken to recovery room in stable condition. Tracee Villegas MD ALB/FINNL /[id number] cc: MD Marci Sr MD Copies: TRACEE VILLEGAS MD, ROBERT D DMD ~ Electronically Signed By: TRACEE VILLEGAS MD 04/09/24 1853 PATIENT NAME: NINOSKASOYMelaineMARGARITO VILLALOBOS OPERATIVE REPORT DATE OF : 58 REPORT #: [id number] PHYSICIAN: TRACEE VILLEGAS MD PCP: MARCI MCCRARY MD REPORT IS CONFIDENTIAL AND NOT TO BE RELEASED WITHOUT AUTHORIZATION
--- NOTE | 2024-04-09 19:22 | NUR ---
REPORT RECEIVED FROM DAY SHIFT RN. PT LYING IN BED ALERT AND ORIENTED. DENIES NEEDS. WHITE BOARD UPDATED. CALL LIGHT IN REACH.
--- NOTE | 2024-04-09 20:22 | NUR ---
EVENING ASSESSMENT COMPLETE. PT REPORTS ABD PAIN 01/30. PRN FOR PAIN ADMIN PER EMAR. PT DENIES NAUSEA. LAP SITES X 4 WITH GAUZE AND TAPE INTACT. SCANT AMOUNT SEROSANG DRAINAGE NOTED. ROSSY TO RLQ WITH SMALL AMOUNT SEROSANG DRAINAGE. ABD SLIGHTLY DISTENDED. BOWEL TONES ACTIVE. PT DENIES FLATUS. PT UP TO AMB MULTIPLE LAPS AROUND ROOM WITH SBA. JOSE L WELL, BACK TO BED. DENIES FURTHER NEEDS. CALL LIGHT IN REACH.
--- NOTE | 2024-04-09 21:32 | NUR ---
skiver operator gave pt a new ice pack and ice water.
--- NOTE | 2024-04-09 22:00 | NUR ---
IV PUMP ALARMING. NEW BAG IVF INFUSING PER ORDER. PT REPORTS PAIN TOLERABLE. NO NEEDS AT THIS TIME. CALL LIGHT IN REACH.
--- NOTE | 2024-04-09 23:26 | NUR ---
PT REPORTS RUQ PAIN 10. PRN FOR PAIN ADMIN PER EMAR. FRESH WATER PROVIDED. URINAL EMPTIED. NO FURTHER NEEDS.
[2024-04-10] VITALS (9 sets, daily range): BP systolic 127–150; BP diastolic 67–79
--- NOTE | 2024-04-10 01:44 | NUR ---
VS AND I&O OBTAINED. PT REPORTS ABD PAIN TOLERABLE AT REST. LAP SITES X 4 WITH GAUZE INTACT. SCANT AMOUNT SEROSANG DRAINAGE. ROSSY RLQ IN PLACE WITH 10 ML SEROSANG DRAINAGE. BOWEL TONES ACTIVE. PT DENIES FLATUS. DENIES NAUSEA. UP TO AMB HALF THE LENGTH OF THE DORSEY WITH DUPLICATE MAKER SBA.
--- NOTE | 2024-04-10 01:50 | NUR ---
PRICE ACCURACY SUPERVISOR WALK WITH PT IN THE DORSEY FOR A TOTAL OF 40 FEET. PT REPORTED NOT ISSUES WITH THIS ACTIVITY OTHER THAN POST OP PAIN.
--- NOTE | 2024-04-10 03:33 | NUR ---
PT RESTING IN BED WITH EYES CLOSED. RESPIRATIONS EVEN. CALL LIGHT IN REACH.
--- NOTE | 2024-04-10 04:15 | NUR ---
CALL LIGHT ANSWERED. PT REPORTS NAUSEA. PRN FOR N/V ADMIN PER EMAR. FRESH ICE PACK TO ABD. VS AND I&O OBTAINED. NO FURTHER NEEDS.
--- NOTE | 2024-04-10 05:05 | NUR ---
PT REPORTS ABD PAIN 01/30. PRN FOR PAIN ADMIN PER EMAR. ASHER PROVIDED. LAB IN FOR MORNING DRAW. NO FURTHER NEEDS.
[2024-04-10 05:38] LABS: BASOPHILS 0.1 % (0-2); EOSINOPHILS 0.3 % (0-6); HEMATOCRIT 32.1 % (35.0-50.0); HEMOGLOBIN 11.1 g/dL (12.0-18.0); LYMPHOCYTES 4.7 % (24-44); MCH 34.5 (27-36); MCHC 34.6 g/dl (30-36); MCV 99.6 fl (81-99); MONOCYTES 4.3 % (0-12); NEUTROPHILS 90.6 % (39-80); PLATELET COUNT 163 K/uL (140-440); RBC 3.22 M/ul (4.3-5.7); RDW 15.4 (10.5-15.0)
[2024-04-10 05:56] LABS: ALBUMIN 2.8 g/dL (3.4-5.0); ALBUMIN/GLOBULIN RATIO 0.8 (1.1-2.4); ANION GAP 12.1 (7-21); BILIRUBIN, TOTAL 0.5 ng/dL (0.2-1.0); BUN/CREATININE RATIO 8.86 (6.0-28.6); CALCIUM 8.5 mg/dL (8.5-10.1); CREATININE, SERUM 0.79 mg/dL (0.70-1.30); MAGNESIUM 1.7 mg/dL (1.8-2.4); PHOSPHORUS, INORGANIC 2.1 mg/dL (2.5-4.9); POTASSIUM 3.1 mmol/L (3.5-5.1); PROTEIN, TOTAL 6.3 g/dL (6.4-8.2)
--- NOTE | 2024-04-10 07:05 | NUR ---
REPORT RECIEVED FROM GRIS CHUNG. PT LAYING IN BED AND RESPONDS WHEN ADDRESSED. IV FLUID RATE CHANGED PER ORDERS FROM 100mL/HR TO 50mL/HR. PT REQUESTING ICE WATER, PROVIDED. URINAL EMPTIED. PT DENIES ANY OTHER NEEDS AT THIS TIME. CALL LIGHT IN REACH.
[2024-04-10] MEDS ORDERED: SOD PHOS MONO/SOD PHOS DIBAS 250 MG TAB PO SCH (08:00)
--- NOTE | 2024-04-10 08:37 | NUR ---
IN TO ADMINISTER MEDICATIONS, SEE MAR. PT TAKES PO MEDICATIONS WITH NO ISSUES. IV FLUSHES WNL AND IV ABX STARTED, SEE MAR. PT SITTING UP IN BED EATING BREAKFAST. ICE WATER PROVIDED. URINAL EMPTIED. PT DENIES ANY OTHER NEEDS AT THIS TIME. CALL LIGHT IN REACH.
[2024-04-10] MEDS ORDERED: PANTOPRAZOLE SODIUM 40 MG TABEC PO SCH (09:00)
[2024-04-10] MEDS ORDERED: MAGNESIUM OXIDE 400 MG TABLET PO SCH (09:00)
--- NOTE | 2024-04-10 09:20 | NUR ---
IV ABX DONE INFUSING. STARTED NEW BAG OF CONTINUOUS FLUIDS; D5LR@ 50ML/HR PER ORDER. PATIENT AWAKE IN BED WATCHING TV, NO DISTRESS.
--- NOTE | 2024-04-10 09:32 | NUR ---
IN TO ROUND ON PT. NITIN TRINIDAD IN ROOM. PT SITTING UP IN BED. IV ABX STARTED, SEE MAR. IVs FLUSH WNL. ASSESSMENT COMPLETE. LUNG SOUNDS CLEAR IN AMADEO, LLL. RHONCHI IN RUL AND RLL. BOWEL TONES HYPOACTIVE. ABD DISTENTION NOTED. DRESSINGS TO ABD REMOVED PER ORDERS. 4 LAP SITE NOTED TO BE C/D/I. ROSSY SITE DRESSING REMOVED, NOTED TO BE C/D/I. ROSSY TUBING STRIPPED, PT EDUCATED AND SHOWN HOW TO STRIP ROSSY TUBING. PT REPORT PASSING FLATUS THIS MORNING. PT REPORTING "GAS PAIN." PT DENIES ANY NUMBNESS OR TINGLING AT THIS TIME. PEDAL PULSES PALPABLE, EQUAL AND STRONG. RADIAL PULSES PALPABLE, EQUAL AND STRONG. PT DENIES ANY OTHER NEEDS AT THIS TIME. CALL LIGHT IN REACH.
--- NOTE | 2024-04-10 10:12 | NUR ---
Spoke with pt. He states he feels better. Shows the pictures of his gallbladder. He is unsure if he will be released today. He denies needs and states his brother and sister will check in on him.
--- NOTE | 2024-04-10 10:30 | NUR ---
WRAPPED PATIENT'S IVS. PATIENT AND I WALKED TO HIS BATHROOM SO HE COULD TAKE A SHOWER.
--- NOTE | 2024-04-10 10:43 | NUR ---
PHONE CALL W/ SU MANUEL (PTS BROTHER). SU IS REQ INFORMATION ON PTS RELEASE. SU IS NOT LISTED ON [facility], REQ PERMISSION TO RELEASE INFO TO SU FROM PT AND PT STATED "YES, THAT IS OK". UPDATE GIVEN TO SU, I LET HIM KNOW DR. VILLEGAS SAW PT THIS MORNING AND NEEDS TO SEE HIM AGAIN THIS AFTERNOON TO MAKE A DECISION.
--- NOTE | 2024-04-10 11:53 | NUR ---
IN TO ROUND ON PT. PT SITTING UP ON EDGE OF BED. PT DONE WITH SHOWER. OFFERED TO WALK WITH PT. PT AGREEABLE. PT AMBULATES FROM ROOM TO SECOND NURSES STATION. PT REPORTING "FEELING LIGHT HEADED." PT AMBUALTES BACK TO ROOM FROM SECOND NURSES STATION. PT BACK IN BED. PT REPORITNG PAIN 03/02 TO ABD. PRN PAIN MEDICATION ADMINISTERED, SEE MAR. PT TAKES PO MEDICAITONS WITH NO ISSUES. WATER PROVIDED. PT DENIES ANY OTHER NEEDS AT THIS TIME. CALL LIGHT IN REACH.
--- NOTE | 2024-04-10 13:26 | NUR ---
IN TO ROUND ON PT. PT SITTING UP ON EDGE OF BED. PT REPORTING PAIN 7/10 TO ABD. PRN MEDICATION ADMINISTERED, SEE MAR. NEW ICE PACK PROVIDED. ICE WATER PROVIDED. ASSESSMENT COMPLETE. BOWEL TONES ACTIVE. LAP SITES X4 C/D/I, EDGES WELL APPROXIMATED. ROSSY SITE C/D/I. PT DENIES TENDERNESS WITH PALPATION TO ABD. ABD DISTENTION NOTED. LUNG SOUNDS CLEAR. IV INFUSING WNL. PT DENIES ANY OTHER NEEDS AT THIS TIME. CALL LIGHT IN REACH.
--- NOTE | 2024-04-10 14:55 | NUR ---
PT AMBULATING DORSEY WITH NITIN TRINIDAD.
--- NOTE | 2024-04-10 15:12 | NUR ---
THIS RN CALLED DR. VILLEGAS PT CURIOUS REGARDING PLAN AND PT WANTING TO SEE IF HE CAN GO HOME. VERBAL ORDERS OVER PHONE THAT PT CAN BE "DC'd." VERIFIED WITH READBACK.
[2024-04-10] MEDS ORDERED: LEVOFLOXACIN500 MG PO ×2 (15:38)
[2024-04-10] MEDS ORDERED: METRONIDAZOLE500 MG PO ×2 (15:39)
[2024-04-10] MEDS ORDERED: OXYCODONE HCL10 MG PO ×2 (15:41)
[2024-04-10] MEDS ORDERED: TYLENOL325 MG PO ×2 (15:45)
--- NOTE | 2024-04-10 16:25 | NUR ---
IN TO GO OVER DC INSTRUCTIONS. VERBAL AND WRITTEN INSTRUCTIONS PROVIDED. PT USES TEACHBACK AND VERBALIZES UNDERSTANDING. PT SHOWN DRAIN CARE, PT SHOWS THIS RN HOW PT WILL PERFORM DRAIN CARE AT HOME. PT PROVIDED WITH DRAIN RECORDER SHEET AND PT EDUCATED TO RECORD DRAIN OUTPUT. PT VERBALIZES UNDERSTANDING. PT PROVIDED SCRIPT FOR MEDICAITONS. QUESTIONS ANSWERED. PT WHEELED OUT BY THIS RN. PT HAS NO CONCERNS OR QUESTIONS UPON DC.
--- NOTE | 2024-04-11 12:26 | EKG ---
[facility] [address] [facility] [place], [place] [address] Signed Normal sinus rhythm Normal ECG No previous ECGs available Confirmed by Rhina Marroquin MD ([id number]) on 04/11/2024 12:26:15 PM Electronically Signed By: RHINA MARROQUIN DO 04/11/24 1226 PATIENT NAME: CHIKIS MANUEL VILLALOBOS Electrocardiogram DATE OF : 58 PHYSICIAN: RHINA MARROQUIN DO REPORT #: [id number] REPORT IS CONFIDENTIAL AND NOT TO BE RELEASED WITHOUT AUTHORIZATION
--- NOTE | 2024-04-15 17:21 | PATH ---
[facility] [address] [facility] [place] [address] Signed SPECIMEN(S): A GALLBLADDER AND STONE SPECIMEN SOURCE: A. GALLBLADDER AND STONE CLINICAL HISTORY: Acute cholecystitis, cholelithiasis FINAL PATHOLOGIC DIAGNOSIS: Gallbladder and stone: - Acute suppurative calculous cholecystitis. - Focal mucosal necrosis. JVR:shaq MICROSCOPIC EXAMINATION: Histologic sections of all submitted blocks are examined by light microscopy. These findings, together with the gross examination, support the pathologic diagnosis. GROSS DESCRIPTION: The specimen, labeled and designated "Chauncey S, gallbladder and stone," is received in formalin and consists of Specimen: Previously open gallbladder. Dimensions: 11.0 x 5.5 x 2.8 cm. Serosa: [place]-cantrell focally hemorrhagic smooth and glistening with attached adipose tissue. Cystic Duct: Unobstructed. Calculi: Single brown calculus measuring 1.4 x 0.9 x 0.8 cm. Mucosa: [place] velvety with areas of beasley-brown discolored areas consistent with possible necrosis and focal hemorrhage. Wall thickness: 0.9 cm. Lymph node: No pericystic lymph nodes are grossly identified. Additional: None. Biology Internship sections are submitted in (A1). VASILE (under the direct supervision of a pathologist) The Gross Description was prepared using a voice recognition system. The report was reviewed for accuracy; however, sound-alike word errors, addition and/or deletions may occur. If there is any question about this report, please contact Client Services. PERFORMING LABORATORY: PATIENT NAME: CHIKIS MANUEL PATHOLOGY DATE OF : 58 REPORT #: [id number] PHYSICIAN: HOANG WANG PCP: MARCI MCCRARY MD REPORT IS CONFIDENTIAL AND NOT TO BE RELEASED WITHOUT AUTHORIZATION [facility] [address] [place], [place] [address] Signed Technical component was performed by [employer], [address] [place] [address] (CLIA# [id number]). Professional interpretation was performed by [facility] [address] [address] (CLIA#: [id number]). Diagnostician: Palmer Beard MD Pathologist Electronically Signed 04/15/2024 Copies: ~ PATIENT NAME: CHIKIS MANUEL PATHOLOGY DATE OF : 58 REPORT #: [id number] PHYSICIAN: HOANG WANG PCP: MARCI MCCRARY MD REPORT IS CONFIDENTIAL AND NOT TO BE RELEASED WITHOUT AUTHORIZATION
== END 2024-04-10 16:30 | disposition home or self-care (01) ==
LOC: ED 12:18 → MS 12:19 → ED 17:32 → MS 04-10 16:30
PROVIDERS: Emergency Medicine; ADMIT Colon & Rectal Surgery; ATTEND Colon & Rectal Surgery
PROC: 0FT44ZZ Resection of Gallbladder, Percutaneous Endoscopic Approach (ICD-10-PCS; principal; 2024-04-09 09:30)
DX: K80.12 Calculus of gallbladder with acute and chronic cholecystitis without obstruction (principal); J44.9 Chronic obstructive pulmonary disease, unspecified; K21.9 Gastro-esophageal reflux disease without esophagitis; C61 Malignant neoplasm of prostate; Z87.891 Personal history of nicotine dependence; Z79.899 Other long term (current) drug therapy
CPT/HCPCS: 00790; 36415; 51701; 71045; 74177; 76705; 80053; 81003; 83605; 83690; 83735; 84100; 85025; 85610; 85730; 87040; 88304; 93005; 93010; 94640; 94760; 94762; 96361; 96368; 96375; 96376; 99284-25; 99285-25; A9270; G0378; J0131; J0696; J0780; J1100; J1170; J1650; J1885; J2270; J2405; J2470; J2704; J3010; J3490; J7030; J7121

== ENCOUNTER 2024-04-16 04:38 | Inpatient (IN) | payer MEDICARE, OTHER ==
[2024-04-16] VITALS (7 sets, daily range): BP systolic 113–145; BP diastolic 50–86
[~2024-04-16] VITALS: Ht 172.7 cm; Wt 94.8 kg
[~2024-04-16 04:38] MED LIST changes: +FOLIC ACID1 MG PO; +LEVOFLOXACIN500 MG PO; +METRONIDAZOLE500 MG PO; +OMEPRAZOLE40 MG PO; +OXYCODONE HCL10 MG PO; +TYLENOL325 MG PO; +VITAMIN B-1100 MG PO; +VITAMIN B-121000 MCG PO
--- OUTSIDE RECORDS SUMMARY | 2024-04-16 04:40 | XMS ---
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 Freddie VISIT COUNT (12 MO.) [address] [place] [address] TOTAL 2 NOTE: Visits indicate total known visits. ED/UCC VISIT TRACKING (12 MO.) 04/16/2024 04:38 [facility] [place] TYPE: Emergency COMPLAINT: - WOUND CHECK 04/07/2024 22:28 [facility] [place] TYPE: Emergency COMPLAINT: - ABD PAIN DIAGNOSES: - Calculus of bile duct without cholangitis or cholecystitis without obstruction - Chronic obstructive pulmonary disease, unspecified - Other long term care social worker (current) drug therapy - Other specified diseases of gallbladder - Personal history of nicotine dependence - Right upper quadrant pain - Splenomegaly, not elsewhere classified INPATIENT VISIT TRACKING (12 MO.) 04/08/2024 12:19 [facility] [place] TYPE: Observation COMPLAINT: - CHOLECYSTITIS DIAGNOSES: - Calculus of gallbladder with acute and chronic cholecystitis without obstruction - Chronic obstructive pulmonary disease, unspecified - Gastro-esophageal reflux disease without esophagitis - Malignant neoplasm of prostate - Other penitentiary (current) drug therapy - Personal history of nicotine dependence [email or web address]
[2024-04-16] MEDS ORDERED: ondansetron HCL 4 MG/2 ML VIAL IV ONE (05:00)
[2024-04-16] MEDS ORDERED: SODIUM CHLORIDE 0.9% 1,000 ML IV ONE (05:00)
[2024-04-16] MEDS ORDERED: HYDROmorphone HCL 1 MG/ML SYR IV ONE (05:00)
[2024-04-16] MEDS ORDERED: PIPERACILLIN/TAZOBACTAM 4.5 GM VIAL ONE (05:10)
[2024-04-16 05:13] LABS: HEMOGLOBIN 10.8 g/dL (12.0-18.0)
[2024-04-16] MEDS ORDERED: PIPERACILLIN/TAZOBACTAM 4.5 GM in DEXTROSE 5% 100 ML IV ONE (05:15)
[2024-04-16 05:16] LABS: BASOPHILS 0.4 % (0-2); EOSINOPHILS 0.9 % (0-6); HEMATOCRIT 31.1 % (35.0-50.0); LYMPHOCYTES 7.5 % (24-44); MCH 33.2 (27-36); MCHC 34.6 g/dl (30-36); MCV 95.9 fl (81-99); MONOCYTES 3.3 % (0-12); NEUTROPHILS 87.9 % (39-80); PLATELET COUNT 396 K/uL (140-440); RBC 3.25 M/ul (4.3-5.7); RDW 15.1 (10.5-15.0)
[2024-04-16 05:27] LABS: ALBUMIN/GLOBULIN RATIO 0.77 (1.1-2.4); ANION GAP 12.8 (7-21); BILIRUBIN, TOTAL 0.7 ng/dL (0.2-1.0); BUN/CREATININE RATIO 9.9 (6.0-28.6); CALCIUM 8.6 mg/dL (8.5-10.1); CREATININE, SERUM 1.01 mg/dL (0.70-1.30); POTASSIUM 2.8 mmol/L (3.5-5.1); PROTEIN, TOTAL 6.9 g/dL (6.4-8.2)
[2024-04-16 05:33] LABS: BILIRUBIN, URINE NEGATIVE (negative); BLOOD/HGB, URINE NEGATIVE (Negative); KETONE, URINE NEGATIVE (Negative); LEUK ESTERASE, URINE NEGATIVE (negative); NITRITE, URINE NEGATIVE (negative)
[2024-04-16] MEDS ORDERED: POTASSIUM CHLORIDE 10 MEQ TABCR PO ONE ×3 (06:00→06:45)
[2024-04-16] MEDS ORDERED: ACETAMINOPHEN 325 MG TAB PO PRN (06:45)
[2024-04-16] MEDS ORDERED: DAPTOmycin 500 MG/10 ML VIAL IV SCH ×2 (06:45→09:00)
[2024-04-16] MEDS ORDERED: HYDROmorphone HCL 1 MG/ML SYR IV PRN ×3 (06:45→07:15)
[2024-04-16] MEDS ORDERED: LACTATED RINGER'S 1,000 ML IV SCH (06:45)
[2024-04-16] MEDS ORDERED: ondansetron HCL 4 MG/2 ML VIAL IV PRN ×3 (06:45→07:15)
--- NOTE | 2024-04-16 06:59 | NUR ---
pt admitted to room 112 from er via w/c. alert and oriented, pleasant and cooperative. Oriented to room, call light at bedside
[2024-04-16] MEDS ORDERED: IBUPROFEN 800 MG TAB PO PRN ×2 (07:00→07:15)
[2024-04-16] MEDS ORDERED: DEXTROSE 5% - LACTATED RINGERS 1,000 ML IV SCH ×2 (07:00→07:15)
[2024-04-16] MEDS ORDERED: PROCHLORPERAZINE EDISYLATE 10 MG/2 ML VIAL IV PRN ×2 (07:00→07:15)
[2024-04-16] MEDS ORDERED: OXYCODONE HCL 5 MG TAB PO PRN ×2 (07:00→07:15)
[2024-04-16] MEDS ORDERED: ACETAMINOPHEN 500 MG TAB PO PRN ×2 (07:00→07:15)
[2024-04-16] MEDS ORDERED: ALBUTEROL SULFATE 0.083% 3 ML VIAL INH PRN (07:00)
[2024-04-16] MEDS ORDERED: LEVOTHYROXINE SODIUM 88 MCG TAB PO SCH (07:00)
[2024-04-16] MEDS ORDERED: OXYCODONE/APAP 5/325 TAB PO PRN (07:00)
[2024-04-16] MEDS ORDERED: ALBUTEROL SULFATE 0.083% 3 ML VIAL INH SCH (08:00)
[2024-04-16] MEDS ORDERED: BUDESONIDE 0.5 MG/2 ML VIAL INH SCH (08:00)
--- NOTE | 2024-04-16 08:01 | NUR ---
MED REC COMPLETE
[2024-04-16] MEDS ORDERED: PANTOPRAZOLE SODIUM 40 MG TABEC PO SCH (09:00)
[2024-04-16] MEDS ORDERED: ENOXAPARIN SODIUM 40 MG/0.4 ML SYR SUB-Q SCH ×2 (09:00)
[2024-04-16] MEDS ORDERED: TRIMETHOPRIM/SULFAMETHOXAZOLE 1 EA TAB PO SCH (09:00)
[2024-04-16] MEDS ORDERED: FOLIC ACID 1 MG TAB PO SCH (09:01)
[2024-04-16] MEDS ORDERED: CYANOCOBALAMIN 1,000 MCG TAB PO SCH (09:02)
[2024-04-16] MEDS ORDERED: THIAMINE HCL 100 MG TAB PO SCH (09:02)
--- NOTE | 2024-04-16 09:19 | NUR ---
VERBAL REPORT RECIEVED FROM GRIS PRATER. PT AWAKE AND ALERT. AMBULATES INDEPENTDENTLY TO BATHROOM WITH STEADY GAIT. EATS BREAKFAST TOLERATES THIS WELL. NO REQUESTS AT THIS TIME.
--- NOTE | 2024-04-16 09:44 | NUR ---
ERYTHEMA AND INDURATION NOTED AROUND UMBILICUS, WARM TO TOUCH AND TENDER. ERYTHEMA BORDERS MARKED ORDERED. ICE APPLIED OVER SITE.
[2024-04-16] MEDS ORDERED: SODIUM HYPOCHLORITE 0.5% 480 ML BTL TOP PRN (09:45)
--- NOTE | 2024-04-16 12:59 | NUR ---
UR CLINICAL REVIEW: 2 MN FOR VERSALUS-MEETS INPT CRITERIA MEDICARE 04/16/24 @ 0659 ORDER MATCHES REG NO AUTH REQIRIED PER MEDICARE GUIDELINES DISCHARGE TO HOME WHEN STABLE
--- NOTE | 2024-04-16 14:09 | NUR ---
PT SITS UP ON BEDSIDE. IV TO SL. PT PREPARES TO SHOWER WITH ASSIST FROM NITIN PURDY.
--- NOTE | 2024-04-16 14:24 | NUR ---
PT NOT AVAILABLE FOR VISIT. PROVIDED PRAYER.
--- NOTE | 2024-04-16 14:46 | NUR ---
PATIENT IN BED AT THIS TIME. FACILITIES MANAGEMENT EXECUTIVE SET PATIENT UP FOR A SHOWER, PATIENT INDEPENDENTLY SHOWERED. CALL LIGHT WITHIN REACH, NO FURTHER NEEDS AT THIS TIME.
--- NOTE | 2024-04-16 15:04 | NUR ---
ERYTHEMA AROUND UMBILICUS REMAINS INSIDE PREVIOUSLY MARKED BORDER. INICISON UMBILICUS REMAINS WELL APPROXIMATED, NO OPEN AREAS OR DRAINAGE NOTED. SKIN FIRM AND WARM TO TOUCH.
--- NOTE | 2024-04-16 15:55 | NUR ---
PT RECEIVES ZOFRAN FOR REPORT OF NAUSEA, SEE EMAR.
[2024-04-16] MEDS ORDERED: ATORVASTATIN 40 MG TAB PO SCH (17:00)
--- NOTE | 2024-04-16 18:18 | NUR ---
PT RECEIVES OXYCODONE AND TYLENOL ORDERED FOR REPORTS OF ABDOMINAL PAIN AND FEVER OF 102.2 F.
--- NOTE | 2024-04-16 18:28 | NUR ---
DR. VILLEGAS NOTIFIED OF PT TEMPERATURE 102.2 F AND 1010 PAIN. NO NEW ORDERS RECEIVED. PLAN OF CARE FOR DR. VILLEGAS TO DO BEDSIDE PROCEDURE TOMORROW.
--- NOTE | 2024-04-16 19:28 | NUR ---
REPORT RECIEVED FROM DAY SHIFT RN. PATIENT STANDING IN ROOM, DENIES NEEDS AT THIS TIME. CALL LIGHT IN REACH.
--- NOTE | 2024-04-16 21:36 | NUR ---
VS AND I&Os OBTAINED AND RECORDED. SCHEDULED MEDICATION ADMINISTERED. PATIENT REPORTS 5/10 ABD PAIN. PRN PAIN MEDICATION ADMINISTERED. UMBILICUS REDNESS REMAINS WITHIN THE OUTLINE. BOWEL TONES ACTIVE. IV FLUSHES WNL. PATIENT REQUESTING HIS DINNER TO BE HEATED UP. DINNER HEATED UP, FRESH WATER AND FRESH ICE PACK PROVIDED. PATIENT HAS NO FURTHER NEEDS. CALL LIGHT IN REACH.
--- NOTE | 2024-04-16 23:00 | NUR ---
PATIENT RESTING IN BED, TALKING ON CELL PHONE. NO NEEDS NOTED AT THIS TIME. CALL LIGHT IN REACH.
[2024-04-17] VITALS (12 sets, daily range): BP systolic 101–161; BP diastolic 63–84
--- NOTE | 2024-04-17 00:37 | NUR ---
PATIENT REQUESTING ICE WATER. FRESH ICE WATER PROVIDED. NO FURTHER NEEDS. CALL LIGHT IN REACH.
--- NOTE | 2024-04-17 01:43 | NUR ---
VS AND I&Os OBTAINED AND RECORDED. PATIENT REPORTING 5/10 ABD PAIN. PRN PAIN MEDICATION ADMINISTERED PER PATIENT REQUEST. NEW BAG IV FLUID INFUSING PER ORDER. PATIENT HAS NO FURTHER NEEDS. CALL LIGHT IN REACH.
--- NOTE | 2024-04-17 03:52 | NUR ---
PATIENT RESTING IN BED, DENIES NEEDS AT THIS TIME. CALL LIGHT IN REACH.
--- NOTE | 2024-04-17 04:29 | NUR ---
CALL LIGHT ANSWERED. PATIENT REPORTS HIS IV IS LEAKING. IV HUB LEAKING FLUID. IV SITE RE-DRESSED AND FLUSHED WNL WITH BLOOD RETURN PRESENT. VS AND I&Os OBTAINED AND RECORDED. ASSESSMENT COMPLETE. PATIENT ABD REDNESS SLIGHTLY OUTSIDE THE MARKER LINE AND HOT TO TOUCH. PATIENT STATES "YOU ARE REALLY KEEPING UP ON MY PAIN TONIGHT". PATIENT DENIES FURTHER NEEDS AT THIS TIME. CALL LIGHT IN REACH.
[2024-04-17 05:28] LABS: HEMATOCRIT 31.1 % (35.0-50.0); HEMOGLOBIN 10.7 g/dL (12.0-18.0); MCH 33.3 (27-36); MCHC 34.5 g/dl (30-36); MCV 96.6 fl (81-99); PLATELET COUNT 448 K/uL (140-440); RBC 3.22 M/ul (4.3-5.7); RDW 15.4 (10.5-15.0)
--- NOTE | 2024-04-17 05:28 | NUR ---
PRN PAIN MEDICATION ADMINISTERED PER PATIENT REQUEST. NO FURTHER NEEDS. CALL LIGHT IN REACH.
[2024-04-17 05:45] LABS: ALBUMIN 2.8 g/dL (3.4-5.0); ALBUMIN/GLOBULIN RATIO 0.72 (1.1-2.4); ANION GAP 11.8 (7-21); BILIRUBIN, TOTAL 0.5 ng/dL (0.2-1.0); BUN/CREATININE RATIO 10.2 (6.0-28.6); CALCIUM 8.6 mg/dL (8.5-10.1); CREATININE, SERUM 0.98 mg/dL (0.70-1.30); MAGNESIUM 1.8 mg/dL (1.8-2.4); POTASSIUM 3.8 mmol/L (3.5-5.1); PROTEIN, TOTAL 6.7 g/dL (6.4-8.2)
[2024-04-17 05:56] LABS: BANDS, MANUAL DIFF 2; EOSINOPHILS, MANUAL DIFF 2; LYMPHOCYTES, MANUAL DIFF 14; MONOCYTES, MANUAL DIFF 1; NEUTROPHILS, MANUAL DIFF 81
--- NOTE | 2024-04-17 07:08 | CONS ---
[facility] [address], [place] [address] Signed DATE OF CONSULTATION: 04/16/2024 CHIEF COMPLAINT: Periumbilical pain. HISTORY OF PRESENT ILLNESS: Chikis is a 64-year-old gentleman, I helped with a rather difficult laparoscopic cholecystectomy seven days ago. He was in the office yesterday. He developed periumbilical inflammation, swelling and pain and warmth. He was using Augmentin and Flagyl for his gallbladder. It did nothing for his periumbilical wound infection and/cellulitis. We wrote him for some pain medication yesterday along with some Bactrim. He came into the emergency room this morning I think mainly for the pain. Dr. Mejia had pushed on the area and apparently some fluid came out most likely from underneath the umbilicus. The incision itself was left close. He was given a dose of daptomycin. His potassium was low, so he was written for some IV potassium as well. I have been asked to admit him obviously as a general surgeon. He is now in his room and doing quite well. PAST MEDICAL HISTORY: Hyperlipidemia, asthma, COPD, allergic contact dermatitis, eczema, acid reflux, hyperlipidemia, hypothyroidism, elevated PSA and vitamin D deficiency. PAST SURGICAL HISTORY: Includes a colonoscopy with Dr. Alvarado and a laparoscopic cholecystectomy seven days ago with myself. FAMILY HISTORY: His father had pneumonia and Alzheimer's. His mom is . He has two brothers and a sister, all healthy. SOCIAL HISTORY: He used to smoke. He does not drink. He is retired as a pest control agent. He is now a as his of pancreatic cancer. He has a stepson in [place]. He has a sister Serena Adame who lives in [place], [place] at . He may have a son that lives in [facility] as well. Dr. Marci Mccrary is his primary care provider. He prefers the [facility]. REVIEW OF SYSTEMS: He had 10 systems reviewed and he is waiting to do his prostatectomy in May this year for his prostate cancer. ALLERGIES: None. Electronically Signed By: TRACEE VILLEGAS MD 04/17/24 0708 PATIENT NAME: CHIKIS MANUEL CONSULTATION DATE OF : 58 REPORT #: [id number] PHYSICIAN: TRACEE VILLEGAS MD PCP: MARCI MCCRARY MD REPORT IS CONFIDENTIAL AND NOT TO BE RELEASED WITHOUT AUTHORIZATION [facility] [address] [place] [id number] Signed MEDICATIONS: 1. Prilosec 40 mg p.o. daily. 2. Atorvastatin 40 mg p.o. daily. 3. Wixela 250/50 one puff b.i.d. 4. Albuterol 3 puffs every 4 hours. 5. Levothyroxine 88 mcg p.o. daily. PHYSICAL EXAMINATION: VITAL SIGNS: Blood pressure is 129/69, heart rate 69, respiratory rate 16, temperature is 97.9. He is 100% on room air. He is 5 feet 8 inches tall at 94 kg with a body mass index of 31. GENERAL: Chikis is a 64-year-old gentleman, lying supine semi-recumbent in his hospital bed, watching TV. He is not systemically ill or toxic. LUNGS: Clear to auscultation bilaterally. HEART: Regular rate and rhythm without murmurs. ABDOMEN: Soft, nontender, but he has periumbilical erythema, warmth and tenderness. I pushed myself and could not get any fluid to come out. LABORATORY DATA: His white blood count is 12.1, hemoglobin 10.8, neutrophils 87. Potassium is , glucose is 108. UA is negative. Wound cultures are pending. Liver function tests are negative. Albumin is 3.0. RADIOGRAPHIC STUDIES: CT scan of abdomen and pelvis shows some edema and inflammation around the umbilicus, but no drainable fluid collection. ASSESSMENT AND PLAN: Chikis is a 64-year-old gentleman, who presents with a periumbilical incisional wound infection seven days after his rather significant gallbladder surgery despite Augmentin and Flagyl. He is going to be admitted and continued on daptomycin and we will add Bactrim DS one tablet p.o. b.i.d. as well. We will let him have a regular diet. We will continue his usual medications at home. He will also receive some pain medication as well. I have reviewed this with Chikis. He has expressed understanding and agrees with the above plan. Tracee Villegas MD ALB/MODL Electronically Signed By: TRACEE VILLEGAS MD 04/17/24 0708 PATIENT NAME: CHIKIS MANUEL CONSULTATION DATE OF : 58 REPORT #: [id number] PHYSICIAN: TRACEE VILLEGAS MD PCP: MARCI MCCRARY MD REPORT IS CONFIDENTIAL AND NOT TO BE RELEASED WITHOUT AUTHORIZATION [address] [address] Signed /[id number] cc: MD Marci Sr MD Copies: TRACEE VILLEGAS MD, ROBERT D DMD ~ Electronically Signed By: TRACEE VILLEGAS MD 04/17/2408 PATIENT NAME: CHIKIS MANUEL CONSULTATION DATE OF : 58 REPORT #: [id number] PHYSICIAN: TRACEE VILLEGAS MD PCP: MARCI MCCRARY MD REPORT IS CONFIDENTIAL AND NOT TO BE RELEASED WITHOUT AUTHORIZATION
--- NOTE | 2024-04-17 07:10 | NUR ---
REPORT RECEIVED FROM GRIS COSME. PT IN RESTROOM AT THIS TIME, PT STATES NO NEEDS.
--- NOTE | 2024-04-17 08:06 | NUR ---
PATIENT IN BED AT THIS TIME. CNA PCT PROVIDED PATIENT WITH FRESH ICE WATER AND ICE PACK. CALL LIGHT WITHIN REACH, NO FURTHER NEEDS AT THIS TIME.
[2024-04-17] MEDS ORDERED: DAPTOmycin 500 MG/10 ML VIAL IV SCH (09:00)
--- NOTE | 2024-04-17 10:15 | NUR ---
PATIENT IN BED AT THIS TIME. DIAMOND SAW OPERATOR GOT EVERYTHING READY FOR PATIENT TO SHOWER AND WRAPPED PATIENT IV. CALL LIGHT WITHIN REACH, NO FURTHER NEEDS AT THIS TIME.
--- NOTE | 2024-04-17 11:08 | NUR ---
IN PT WAVING FROM DOORWAY OF HIS ROOM. PT REQUESTING A FRESH ICE PACK FOR HIS ABDOMINAL INCISION AND PRN PAIN MEDICATION. BOTH SUPPLIED. PT AMBULATING IN ROOM AND IN HALLS. NO OTHER NEEDS AT THIS TIME.
--- NOTE | 2024-04-17 13:00 | NUR ---
Spoke with pt and he is upset, believes he is being dc now. We discussed and he is confused about the IM letter. Let him know this is a way for him to appeal his dc if he doesn't feel he is ready for dc. Pt stating I want to go home. He also states concern as he has not seen Dr. Rowe. I let him know this is his block schedule today and he will most likely be in later today when he finishes his surgeries. He states he is just concerned and feels like he is not getting all the information. I let him know I would check with his nurse. Spoke with charge nurse and pts RN about his worries. They state he has been aprehensive through the night and day. Dr Rowe arrives and updated. He will seen him when he finishes with his current pt. UPdated Margarito Ramos will be in shortly. Pt denies any need. Does not want to appeal his dc.
--- NOTE | 2024-04-17 13:50 | NUR ---
IN DR VILLEGAS IS ROUNDING ON PT. PT PRE-MEDICATED WITH TWO PRN PAIN MEDICATIONS, DR VILLEGAS PERFORMS PROCEDURE, BEDSIDE INCISION AT UMBILICUS, WOUND PACKED WITH ONE 4X4 GAUZE. 4X4 GAUZE APPLIED AND TAPED ON TOP OF INCISION. ICE PACK APPLIED. PT LYING SUPINE IN BED, GRIMACING AND CURSING BUT CONVERSING. CALL LIGHT IN REACH, NO OTHER NEEDS AT THIS TIME.
--- NOTE | 2024-04-17 14:11 | NUR ---
PT NOT AVAILABLE FOR VISIT. PROVIDED PRAYER.
--- NOTE | 2024-04-17 14:12 | NUR ---
PATIENT IN BED AT THIS TIME. DIXONAC OPERATOR CHARTED VITALS AND I&O'S. PATIENT STATED THAT HE HAD NAUSEA, DIXONAC OPERATOR NOTIFIED RN. CALL LIGHT WITHIN REACH, NO FURTHER NEEDS AT THIS TIME.
--- NOTE | 2024-04-17 18:33 | NUR ---
IN FOR SIX O'CLOCK VS/I&O AND FOR DRESSING CHANGE. PT TOLERATES DRESSING CHANGE WELL. ONE 4x4 GAUZE REMOVED, ONE 4x4 GAUZE IMPREGNATED WITH DAKIN PACKED INTO WOUND. MUPRICON APPLIED TO PERWOUND, 4x4 GAUZE AND ABD PAD APPLIED ON TOP OF WOUND. PT NOTES MORE PAIN TO LEFT OF WOUND THAN RIGHT. INCREASED REDNESS NOTED TO LEFT SIDE. PT SITS UP TO EAT MORE. CALL LIGHT IN REACH, NO OTHER NEEDS NOTED.
--- NOTE | 2024-04-17 19:21 | NUR ---
REPORT RECIEVED FROM DAY SHIFT RN. PATIENT RESTING IN BED ON PHONE. PATIENT DENIES NEEDS AT THIS TIME. CALL LIGHT IN REACH.
--- NOTE | 2024-04-17 20:45 | NUR ---
VS AND I&Os OBTAINED AND RECORDED. PATIENT REPORTS 5/10 ABD PAIN. PRN PAIN MEDICATION ADMINSITERED. SCHEDULED MEDICATION ADMINISTERED. PATIENT DENIES FURTHER NEEDS. CALL LIGHT IN REACH. RT NOW IN ROOM.
[2024-04-17] MEDS ORDERED: MUPIROCIN 22 GM TUBE TOP SCH (21:00)
--- NOTE | 2024-04-17 21:53 | NUR ---
PATIENT RESTING IN BED. ASSESSMENT COMPLETE. PATIENT STATES "IT IS FEELING SO MUCH BETTER THAN IT WAS. I CAN FINALLY PUSH ON MY STOMACH NOW. I HAVEN'T BEEN ABLE TO DO THIS FOR 10 DAYS". PATIENT ABD DRESSING IS C/D/I WITH MINIMAL DRY DRAINAGE. IV FLUSHES WNL. THIS RN VISITED WITH PATIENT IN ROOM AND LISTENED TO PATIENTS CONCERNS REGARDING HIS CARE. PATIENT STATES "I JUST WANT TO GET OUT OF THIS HOSPITAL. I WILL BE BETTER ONCE I AM NOT HERE". PATIENT ALSO STATES "THIS HOSPITAL DID NOT TREAT MY RIGHT AND MIS-DIAGNOSED HER". THIS RN UTILIZED ACTIVE LISTENING. PATIENT STATED "I JUST TRIED NOT TO LOOK, BUT KARY ODONNELL DID IT HURT WHEN HE CUT". "I FEEL LIKE THE WAY PEOPLE WERE LOOKING AT ME TODAY THEY WERE ALL UP TO SOMETHING. I FEEL LIKE THERE IS SOMETHING THAT THEY ARE NOT TELLING ME". THIS RN REASSURRED PATIENT THAT IT IS SO IMPORTANT FOR HIM TO RECIEVE THE ABX. PATIENT VERBILIZED UNDESTANDING. PATIENT ALSO STATED "THANK YOU FOR LISTENING. THE ONLY PEOPLE THAT HAVE LISTENED TO ME ARE THE RT DAREN, THE NEW NURSE RONALD, AND YOU. EVERYONE ELSE JUST SAYS THEY DON'T WANT TO HEAR IT". THIS RN EXPLAINED TO PATIENT TO CALL IF HE NEEDS ANYTHING AT ALL TONIGHT, AND THAT I AM HERE ALL NIGHT IF HE NEEDS TO TALK. PATIENT WAS APPRECIATIVE AND THANKED ME FOR LISTENING. PATIENT ALSO STATED "IT HAS BEEN A REALLY TOUGH YEAR SINCE LOSING MY . SHE WAS SUCH A GREAT PERSON". PATIENT THEN TALKED ABOUT HIS AND THE LIFE THAT THEY SHARED TOGETHER. AT THIS TIME PATIENT HAS NO FURTHER NEEDS. CALL LIGHT REMAINS IN REACH.
--- NOTE | 2024-04-17 23:35 | NUR ---
PATIENT RESTING IN BED ON BACK WITH EYES CLOSED. RESPIRATIONS EVEN AND UNLABORED. CALL LIGHT IN REACH.
[2024-04-18] VITALS (10 sets, daily range): BP systolic 122–146; BP diastolic 61–79
--- NOTE | 2024-04-18 01:16 | NUR ---
PATIENT RESTING IN BED WITH EYES CLOSED. RESPIRATONS EVEN AND UNLABORED. CALL LIGHT IN REACH.
--- NOTE | 2024-04-18 02:58 | NUR ---
REPORT RECEIVED FROM GRIS COSME. ASSUMED CARE OF pt. CALL LIGHT ANSWERED. pt CRYING, PACING IN ROOM, HOLDING ABDOMEN. RATES PAIN 6/10 AT UMBILICUS. PRN PAIN MEDICATION ADMINISTERED. ICE PACK PROVIDED. ABD SOFT, NON-TENDER WITH PALPATION PER pt "I CAN ACTUALLY TOUCH IT NOW". pt PUSHING ON OWN BELLY. INSTRUCTED NOT TO TOUCH NEAR SURGICAL SITE. ABD DRESSING IN PLACE WITH SS SHADOWING OVER MID ABD. PO SNACK PROVIDED WITH PO MEDICATIONS. GATORADE REFILLED. IV SITE FLUSHED WNL, GOOD BLOOD RETURN NOTED. pt EXPRESSING MULTIPLE CONCERNS WITH RN REGARDING CARE FROM CHOLECYSTECTOMY, ER VISITS, AND CURRENT ADMISSION. pt DENIES NEED TO EXPRESS CONCERN TO HOTEL RESERVATIONIST "THEY WILL SEE, THERE WONT BE CERTAIN PEOPLE WORKING HERE AFTER I'M DONE". RN LISTENS TO pt AT BEDSIDE AND ENCOURAGES pt TO REST, EDUCATED ON PLAN OF CARE, ANTIBIOTICS, AND DRESSING CHANGES. pt VERBALIZES UNDERSTANDING AND STATES "I AM MUCH BETTER, WAY LESS PAIN". CALL LIGHT AND PERSONAL SUPPLILES IN REACH.
--- NOTE | 2024-04-18 03:17 | NUR ---
CALL LIGHT ANSWERED. LEGS ELEVATED ON PILLOWS, 2+ PITTING EDEMA BLE. pt DENIES ADDITIONAL NEEDS. CALL LIGHT IN REACH.
--- NOTE | 2024-04-18 05:40 | NUR ---
CALL LIGHT ANSWERED. ICE WATER, ICE PACK, AND SNACKS PROVIDED TO pt. pt AWAKE WATCHING TV. DENIES ADDITIONAL NEEDS.
--- NOTE | 2024-04-18 06:10 | NUR ---
CALL LIGHT ANSWERED. PRN PAIN MEDICATION ADMINISTERED FOR 6/10 PAIN IN ABDOMEN. VS COMPLETE. URINAL EMPTIED. CALL LIGHT IN REACH.
--- NOTE | 2024-04-18 06:45 | NUR ---
MD IN pt ROOM. PRE MEDICATED WITH PRN PAIN MEDICATION PER pt REQUEST. ABDOMEN RED, REDNESS AROUND TO SIDE OF ABDOMEN, OUTSIDE OF MARGINS. PAINFUL WITH DEEP PALPATION. MD ASSESSES pt. pt LAUGHING, CONVERSING WITH MD, STATES "I FEEL A LOT BETTER". DRESSING AND PACKING REMOVED. pt UP TO SHOWER AT THIS TIME. IV SL WNL. pt TO USE CALL LIGHT WHEN FINISHED.
--- NOTE | 2024-04-18 07:15 | NUR ---
Shift report rec'd from Isabel LANDRY. Pt ambulating in william, independently, steady gait without c/o
--- NOTE | 2024-04-18 07:23 | NUR ---
CALL LIGHT ANSWERED. pt OUT OF SHOWER. DRESSING CHANGED PER ORDERS. pt TOLERATED WELL. BEDSIDE REPORT TO BECK. pt HAS CALL LIGHT IN REACH.
--- NOTE | 2024-04-18 07:30 | NUR ---
RECIEVED BEDSIDE REPORT FROM GRIS ALLEN. PROVIDED SKIN CHECK. DISCUSSED WILL OUTLINE REDDNESS DURING THIS SHIFT DUE TO REDDNESS SPREADING MORE ON THE LEFT SIDE OF ABD. PT COMPLIANT DURING DRESSING CHANGE. CALL LIGHT IN REACH. DENIES NEEDS.
--- NOTE | 2024-04-18 07:35 | NUR ---
PT WALKING HALLWAYS. NO COMPLAINTS.
[2024-04-18] MEDS ORDERED: CEFEPIME HCL/D5W 1 GM/100 ML PIGGYBACK IV SCH (08:00)
--- NOTE | 2024-04-18 08:15 | NUR ---
In and spoke with Margarito. States he is feeling much better today. He is unhappy with his I&D at the bedside and feels it was Very painful. He does state he had instant relief when it was completed. He is eating a very large regular breakfast. He denies any needs for home. He let me know, requested he stay a day or two to make sure his antibiotics are working. In general he is unhappy with all his Dr.s as he has had issues with his gallbladder for two years and no one would listen or agree to remove his gallbladder. He feels this is why his gallbladder was so diseased. He does like the staff that are caring for him.
--- NOTE | 2024-04-18 08:37 | NUR ---
PATIENT IN BED AT THIS TIME. DIRECTOR OF LOSS PREVENTION PROVIDED FRESH LINENS AND FRESH ICE WATER. CALL LIGHT WITHIN REACH, NO FURTHER NEEDS AT THIS TIME.
[2024-04-18] MEDS ORDERED: TRIMETHOPRIM/SULFAMETHOXAZOLE 1 EA TAB PO SCH (09:00)
--- NOTE | 2024-04-18 09:05 | NUR ---
PT SITTING ON SIDE OF BED, NEBULIZER TX IN PROGRESS.
--- NOTE | 2024-04-18 09:05 | NUR ---
Spoke with Travis. He is up in a chair today. He cancelled his cancer clinic appt in [facility]. He denies any needs. Possible dc in 1-2 days per report with Dr. Muñoz this am.
--- NOTE | 2024-04-18 10:00 | NUR ---
RED AREA OF ABDOMEN MARKED. L SIDE > R SIDE. PT C/O SORE THROAT AND MOUTH. MOUTH EXAMINED, NOTED REDNESS WITH WHITE PATCHY AREAS.
--- NOTE | 2024-04-18 11:24 | NUR ---
PATIENT IN BED AT THIS TIME. CALL LIGHT WITHIN REACH, NO FURTHER NEEDS AT THIS TIME.
--- NOTE | 2024-04-18 11:25 | NUR ---
CALL PLACED TO DR. VILLEGAS REGARDING THROAT PAIN AND PATCHINESS. ORDERS REC'D FOR NYSTATIN SWISH AND SWALLOW.
[2024-04-18] MEDS ORDERED: NYSTATIN 500,000 UNITS/5 ML CUP PO SCH (13:00)
--- NOTE | 2024-04-18 13:09 | NUR ---
PT SITTING ON SIDE OF BED WITH VISITOR. NO ACUTE DISTRESS NOTED
--- NOTE | 2024-04-18 13:39 | NUR ---
PT NOT AVAILABLE FOR VISIT. PROVIDED PRAYER.
--- NOTE | 2024-04-18 13:45 | NUR ---
PATIENT IN BED AT THIS TIME. SPINDLE PLUMBER CHARTED PATIENTS VITALS AND I&O'S. CALL LIGHT WITHIN REACH, NO FURTHER NEEDS AT THIS TIME.
--- NOTE | 2024-04-18 16:23 | NUR ---
PATIENT IN BED AT THIS TIME. MAKE READY WORKER PROVIDED PATIENT WITH FRESH ICE PACK. CALL LIGHT WITHIN REACH, NO FURTHER NEEDS AT THIS TIME.
--- NOTE | 2024-04-18 18:30 | NUR ---
PATIENT IN BED AT THIS TIME. TECHNICIAN AUTOMATED EQUIPMENT CHARTED VITALS AND I&O'S. PATIENT STATED THAT HE HAD SOME PAIN, RN HAS BEEN NOTIFIED. CALL LIGHT WITHIN REACH, NO FURTHER NEEDS AT THIS TIME.
--- NOTE | 2024-04-18 18:41 | NUR ---
PT AMBULATING IN ROOM T/O SHIFT. MEDICATED X3 WITH OXYCODONE, ALTERNATING TYLENOL AND IBUPROPHEN. PRE-MEDICATED WITH DILAUDID FOR DRESSING CHANGE. ICE PACKS PROVIDED. SITTING ON SIDE OF BED, BED LOW POSITION, CALL DICKSON IN REACH
--- NOTE | 2024-04-18 18:50 | NUR ---
PT UP AMBULATING IN THE HALLS. PT REQUESTS ICE PACK, FRESH ICE WATER, AND CUP OF ICE - SUPPLIED. PT STILL AMBULATING IN HALLS.
--- NOTE | 2024-04-18 19:26 | NUR ---
REPORT RECIEVED FROM DAY SHIFT RN. PATIENT USING RESTROOM AT THIS TIME. NO FURTHER NEEDS. CALL LIGHT IN REACH.
--- NOTE | 2024-04-18 20:08 | NUR ---
WORK MEASUREMENT ENGINEER OBTAINED VITALS AND INTAKE. NO NEW OUTPUT AT THIS TIME. PT STATES NO FURTHER ENEDS AT THIS TIME. CALL LIGHT WITHIN REACH.
--- NOTE | 2024-04-18 20:45 | NUR ---
SCHEDULED IV ABX INFUSING PER ORDER. SCHEDULED MEDICATION ADMINISTERED. PATIENT REPORTS 8/10 ABD PAIN. PRN PAIN MEDICATION ADMINISTERED. ASSESSMENT COMPLETE. ABD DRESSING C/D/I. ACTIVE BOWEL TONES. PATIENT BLE ELAVTED ON 2 PILLOWS. NO FURTHER NEEDS. CALL LIGHT IN REACH. IV FLUSHES WNL.
--- NOTE | 2024-04-18 22:39 | NUR ---
MELTER SUPERVISOR ELECTRIC ARC FURNACE BROUGHT PT A WARM BLANKET UPON PT REQUEST. PT STATES NO FURTHER NEEDS AT THIS TIME. CALL LIGHT WITHIN REACH.
--- NOTE | 2024-04-18 23:48 | NUR ---
PATIENT RESTING IN BED WITH EYES CLOSED. RESPIRATIONS EVEN AND UNLABORED. CALL LIGHT IN REACH.
[2024-04-19] VITALS (7 sets, daily range): BP systolic 122–165; BP diastolic 67–83
--- NOTE | 2024-04-19 01:42 | NUR ---
NEW BAG IV ABX INFUSING PER ORDER. PATIENT REPORTS 8/10 ABD PAIN. PRN PAIN MEDICATION ADMINISTERED PER PATIENT REQUEST. FRESH ICE PACK, SNACKS, AND ICE WATER PROVIDED. PATIENT ABD DRESSING C/D/I. PATIENT STATES HE IS CONCERNED THAT HE IS NOT GETTING BETTER AND FEELS LIKE HE SHOULD LEAVE AND GO TO A BIGGER HOSPITAL. THIS RN EXPLAINED TO PATIENT THAT HE IS RECIEVING ABX THAT WILL HELP HIS INFECTION. PATIENT BLE ELEVATED ON PILLOWS. PATIENT DENIES FURTHER NEEDS AT THIS TIME. CALL LIGHT IN REACH.
--- NOTE | 2024-04-19 04:26 | NUR ---
CALL LIGHT ANSWERED. PT WANTED ICE WATER. CHROME TANNING DRUM OPERATOR BROUGHT ICE WATER AND PT AMBULATED TO BATHROOM INDEPENDENTLY. PT VOIDED AND BACK IN BED. CHROME TANNING DRUM OPERATOR OBTAINED AND DOCUMENTED VITALS AND I&O. PT STATED THAT HE WAS IN PAIN. RN NOTIFED. PT STATES NO FURTHER NEEDS FRM CHROME TANNING DRUM OPERATOR. CALL LIGHT WITHIN REACH AND RN IN ROOM.
--- NOTE | 2024-04-19 04:30 | NUR ---
PATIENT REPORTS 9/10 PAIN. PRN PAIN MEDICATION ADMINISTERED PER PATIENT REQUEST. PATIENT ABD DRESSING IS C/D/I. PATIENT HAS NO FURTHER NEEDS. CALL LIGHT IN REACH.
--- NOTE | 2024-04-19 04:54 | NUR ---
CALL LIGHT ANSWERED. PT WANTED AND ICE PACK AND FRESH ICE WATER. BRAIN SURGEON BROUGHT ITEMS AND PT STATES NO FURTHER NEEDS AT THIS TIME. CALL LIGHT WITHIN REACH.
--- NOTE | 2024-04-19 06:43 | NUR ---
PATIENT UP TO BATHROOM TO SHOWER INDEPENDENTLY. NEW BED LINENS PLACED ON BED. NEW GOWN AND SOCKS PROVIDED. DRESSING CHANGE COMPLETED TO ORDER. PATIENT BACK TO BED. PATIENT HAS NO FURTHER NEEDS. CALL LIGHT IN REACH.
--- NOTE | 2024-04-19 07:00 | NUR ---
Pt report received from GRIS Mar and GRIS CRUM. Pt is ambulating in his room, talking on his cell phone. Pt reports his pain is a 6 out of 10 in his belly. White board updated. Advised pt that I would return for his assessment and with some pain meds. Call light in reach.
--- NOTE | 2024-04-19 07:37 | NUR ---
RECIEVED SHIFT REPORT. PT IS AWAKE WALKING THE DEPARTMENT HALLWAY. DENIES NEEDS.
--- NOTE | 2024-04-19 08:58 | NUR ---
IN ROOM WITH GRIS SOLARES TO ADMINISTER MEDICATIONS, SEE E-MAR. PATIENT IN THE CHAIR EATING BREAKFAST. PATIENT AMBULATED TO THE BED WITHOUT DIFFICULTY. PATIENT WANTED "VENT" ABOUT THE CIRCUMSTANCES AROUND HIS HOSPITAL STAY, WE LISTENED AND PROVIDED THERAPEUTIC COMMUNICATION. PATIENT APPEARED MORE RELAXED AFTER DISCUSSION. CALL LIGHT IN REACH. PATIENT DENIES ADDITIONAL NEEDS AT THIS TIME.
--- NOTE | 2024-04-19 09:00 | NUR ---
Lengthy conversation with Margarito. He is anxious today and tearful at times. He asks if I remember him from when his was here and discharged on [facility]. I let him know I did as his was the elementary secretary at my childrens school. Pt making multiple statements, "No one cares about him", The nurses don't have time for him", "Why don't the nurses care or at least feel sorry for me", "I don't have good pain control". We discussed all of the above statements and I attempted to discuss with pt he is grieving almost 2 years past his wifes . He did not follow up with grief counseling and is not taking antidepressants. Pt feels he did not need any counseling or meds. I discussed with him he is still grieving and he would benefit from counseling or meds if he chooses. Pt thanks me for visiting with him, but states he is stong and does not need any help. He also states his pcp has also offered medication. We also discussed the is limited on the number of pain pills he can provide him. He needs to try other treatments to assist with pain. Pt states in the past when he had issues he was given as much medication as he wanted. I let him know this is just not have things are done anymore. Opiates are limited.
--- NOTE | 2024-04-19 09:37 | NUR ---
MORNING ASSESSMENT COMPLETE. PT IS STATES HE IS FEELING BETTER. ABD DRESSING CDI, REDDNESS APPEARS TO BE IMPROVING. ABD TONES ACTIVE. PAIN 5/10 TOLERABLE. DENIES NEEDS. CALL LIGHT IN REACH
--- NOTE | 2024-04-19 10:18 | NUR ---
IN ROOM WITH GRIS SOLARES TO ADMINISTER PAIN MEDICATION PER PATIENT REQUEST. PATIENT REPORTED INCREASED PAIN RATED AT 7/10. MEDICATION ADMINISTERED, SEE E-MAR. CALL LIGHT IN REACH. PATIENT DENIES ADDITIONAL NEEDS AT THIS TIME.
--- NOTE | 2024-04-19 11:21 | NUR ---
VISITED DURING SPIRITUAL CARE ROUNDS. LONG CONVERSATION WITH PT. PT EXPRESSED SOME FRUSTRATION, HOPE, STATED FEELING MUCH BETTER, EXPRESSED LONELINESS, TALKED OF DESIRE TO RETURN HOME. CHARRER PROVIDED SUPPORTIVE PRESENCE, HOSPITALITY, PRAYER. PT EXPRESSED GRATITUDE.
--- NOTE | 2024-04-19 14:50 | NUR ---
IN ROOM TO GIVE PT MEDICATIONS. PT REQUESTED TYLENOL FOR 8/10 PAIN. STATES HE HAS CHILLS. TEMP CHECKED. NO FEVER. REDDNESS TO LEFT SIDE OF ABD. OUTLINED AND DATED BY THIS RN. ABD IS WARM TO THE TOUCH AND TENDER. PT STATES HE IS STARTING TO NOT FEEL BETTER.
--- NOTE | 2024-04-19 17:41 | NUR ---
ABD DRESSING CHANGED. PRN PAIN MEDICATION ADMINISTERED (PER EMAR). OLD DRESSING REMOVED, PACKING REMOVED, MINOR BLEEDING NOTED. FLUSHED WITH 10ML NS, PACKED WITH DAKIN SOAKED GAUZE. GUAZE APPLIED AND ABD PAD. SECURED WITH TAPE. BACTOBAN OINTMENT APPLIED TO SURROUNDING AREAS. PT TOLERATED WELL.
--- NOTE | 2024-04-19 19:00 | NUR ---
Pt report received from RN's Castillo Mar and SKYLA. Pt is ambulating around his room, talking on his cell phone, reports his abdominal pain is a 6 out of 10. Advised Pt I will return for his assessment and with some pain medication. Pt verbalized understanding. White board updated. Call light in reach.
--- NOTE | 2024-04-19 19:05 | NUR ---
In with pt for IV Pump alarming. IVF infusion complete. IV site is without redness, swelling, leaking, or pain. Flushes well, good blood return. IV s/l at this time.
--- NOTE | 2024-04-19 19:38 | NUR ---
PATIENT ON PHONE AND STATED HE DOES NOT WANT TREATMENTS AND WILLING TO CALL NEEDED. ORDERS CHANGED PER PROTOCOL.
--- NOTE | 2024-04-19 21:26 | NUR ---
INSPECTOR WREATH GAVE PT ICE WATER AND AN ICE PACK.
[2024-04-20] VITALS (8 sets, daily range): BP systolic 129–157; BP diastolic 64–80
--- NOTE | 2024-04-20 01:32 | NUR ---
Report obtained from Marielle Yu. Pt sleeping, IV abx infusing, up to BSC, voided, back to bed, abd dressing with small amount serous discharge on dressing. abd distended, tender
--- NOTE | 2024-04-20 02:19 | NUR ---
C/O ABD PAIN 01/30. DRESSING WITH OLD DRAINAGE. IV ABX INFUSING. SNACKS GIVEN ON REQUEST
--- NOTE | 2024-04-20 03:54 | NUR ---
RESTING, EYES CLOSED, NO S/SX DISTRESS
--- NOTE | 2024-04-20 05:20 | NUR ---
UP TO BRP, VOIDED, USES URINAL, VOIDING CLEAR YELLOW URINE. C/O ABD PAIN, MEDICATED WITH MOTRIN. ABD DRESSING WITH SHADOWING IN PLACE. INDEPENEDNT. IV ABX INFUSING . DENIES C/O SOB WITH EXERTION OR ADVERSE REACTION TO ABX. SNACKS GIVEN ON REQUESTS
--- NOTE | 2024-04-20 07:31 | NUR ---
RECIEVED MORNING REPORT. PT IS UP IN THE ROOM, APPEARS ANXIOUS REQUESTING TO SHOWER. DISCUSSED WITH PT THE IMPORTANCE OF DR VILLEGAS COMING TO LOOK AT SURGICAL SITE. PT STATES HE REMOVED THE GUAZE UNDER THE ABD DRESSING.
--- NOTE | 2024-04-20 07:45 | NUR ---
PT STANDING OUTSIDE ROOM "WIGGLING" THE DOOR HANDLE. THIS RN GOES TO ROOM. DISCUSSES CONCERNS PT STATES "I WANT TO SHOWER". THIS RN DISCUSSED THAT DR VILLEGAS IS HERE, IT IS IMPORTANT THE PATIENT SEES THE SURGICAL SITE. THE PT SAID TO ME "I REMOVED THE BANDAGE, AND PACKING". THIS RN EXPLAINED THE IMPORTANCE NOT TO DO THAT WE ARE NEEDING TO ASSESS FOR IMPROVEMENT OR WORSENING SYMPTOMS. PT IS ANXIOUS ABOUT THE PLAN OF CARE.
--- NOTE | 2024-04-20 08:15 | NUR ---
PATIENT TOOK A SHOWER. BED LINENS CHANGED.
--- NOTE | 2024-04-20 09:05 | NUR ---
PT SHOWERED. IN ROOM PERFORMING PT WOUND DRESSING. SURGICAL SITE FLUSHED WITH NORMAL SALINE. PACKED WITH GUAZE SOAKED WITH DAKIN SOLUTION. GUAZE AND ABD DRESSING APPLIED, SECURED WITH TAPE. PT TOLERATED WELL.
--- NOTE | 2024-04-20 20:00 | NUR ---
IN TO ASSIST RN WITH VS, URINAL EMPTIED, NO FURTHER NEEDS AT THIS TIME
--- NOTE | 2024-04-20 20:13 | NUR ---
patient on phone denies need for treatment at this time. patient willing to call if needed.
--- NOTE | 2024-04-20 20:14 | NUR ---
ON ROOM AIR, COOPERATIVE WITH VITALS AND ASSESSMENT, iNDEPENDENT, WALKING IN ROOM, VOIDING QS YELLOW URINE. LUNGS CLEAR, ON ROOM AIR, ABD SLIGHTLY FIRM, TENDER, DRESSING CHANGES, DECREAED REDNESS NOTED, ERNESTINA,, LBM TODAY. MEDICATED WITH OXYCODONE 10MG AND tYLENOL 650MG PO C/O 01/30 ABD PAIN. C/O RAW TONGUE, WHITE COLORED, GETS NYSTATIN SWISH.IV ANX INFUSING
--- NOTE | 2024-04-20 22:40 | NUR ---
rESTSING, EYES CLOSED, IV ABX INFUSING. REPOSITIONS SELF IN BED, ON ROOM AIR
--- NOTE | 2024-04-20 23:53 | NUR ---
RESTING, EYES CLOSED, NO S/SX DITRESS, TURNS AND REPOSITIONS SELF IN BED
--- NOTE | 2024-04-21 00:45 | NUR ---
in to deliver ice water and ice pack to pt, emptied urinal ans noted x1 soft appiering stool in toilet, no further needs at this time
--- NOTE | 2024-04-21 02:09 | NUR ---
awake, up to brp, used urinarl, voiding qs, back to bed, tolerated well. abd dressing CDI, abd softer, less distended, tender, ERNESTINA, medicated with Motrin 800mg po, fresh water and pop given on requests. IV ABx infusing w/o problems
[2024-04-21 05:28] VITALS: BP 128/61
--- NOTE | 2024-04-21 05:48 | NUR ---
Pt awake, alert and oriented, sted "I feel better, Toro just concerned about the pills instead of the IV abx" reassured. abd softer, excelsior machine tender, dressing CDI. medicated with Oxycodone 10mg po c/o 03/02 abd pain. Tolerating liquids well, no c/o n/v, no c/o adverse reaction to IV abx
[2024-04-21 05:49] VITALS: BP 128/61
--- NOTE | 2024-04-21 06:50 | NUR ---
pt showered. pulled iv R hand off by accident. Will call Dr Rowe to see if he wants the IV restarted. Pt ambulating in room. Abd dressing to be changed
--- NOTE | 2024-04-21 07:00 | NUR ---
dr santillan notified via phone about pt accidentally pulling /SL. "ok to leve out, start Bactrim DS po BID and dc IV ABX
--- NOTE | 2024-04-21 07:36 | NUR ---
RECIEVED SHIFT REPORT. PT IS ANXIOUS AND WANTING TO LEAVE. ASKING IF BAKARI IS GOING TO BE AROUND SOON. PT STATES HE IS FEELING BETTER. PT UP IN BATHROOM. DENIES NEEDS. CALL LIGHT IN REACH.
[2024-04-21] MEDS ORDERED: TRIMETHOPRIM/SULFAMETHOXAZOLE 1 EA TAB PO SCH (09:00)
[2024-04-21] MEDS ORDERED: AMOXICILLIN/CLAVULANATE K 875 MG TAB PO ONE (09:15)
[2024-04-21] MEDS ORDERED: BACTRIM DS TAB1 EACH PO (09:33)
[2024-04-21] MEDS ORDERED: AMOX TR-K CLV1 EAC1 PO (09:33)
[2024-04-21] MEDS ORDERED: OXYCODONE HCL5 MG PO (09:34)
[2024-04-21] MEDS ORDERED: MUPIROCIN22 GM TOP (09:35)
[2024-04-21 09:54] VITALS: BP 138/71
--- NOTE | 2024-04-21 10:00 | NUR ---
IN ROOM WITH GRIS SOLARES AND DR. VILLEGAS TO ASSESS PATIENT. AFTER PROVIDER ASSESSED WOUND, MUPIROCIN OINTMENT WAS APPLIED TO THE SKIND AROUND THE WOUND AND WAS REDRESSED WITH GAUZE AND TAPE. ICE PACK PROVIDED. PATIENT DENIES ADDITIONAL NEEDS AT THIS TIME. CALL LIGHT IN REACH.
[2024-04-21] MEDS ORDERED: AMOXICILLIN/CLAVULANATE K 875 MG TAB PO SCH (17:00)
--- NOTE | 2024-04-22 06:59 | DS ---
[facility] [address], [place] [address] Signed ADMISSION DATE: 04/16/2024 DISCHARGE DATE: 04/21/2024 FINAL DIAGNOSIS: Periumbilical postoperative wound infection. PROCEDURE: Incision and drainage of periumbilical wound infection. HISTORY OF PRESENT ILLNESS: Margarito is a 64-year-old gentleman, who was actually waiting to have his radical prostatectomy. He has been having terrible trouble with right upper quadrant abdominal pain. It got significantly worse over the last couple of months. He even delayed his radical prostatectomy. I did help him 12 days ago with his rather difficult laparoscopic cholecystectomy for a very terrible gallbladder. He had been discharged to home and doing well. He was actually on Levaquin and Flagyl. When he came back to the office, we could tell he was having periumbilical pain and sure enough he had tremendous erythema in that area. There was no fluctuance. We had send him home with Bactrim with instructions to call us in a day or two if it was no better. He went to the emergency room instead. In the emergency room, apparently with some manual compression about 30 mL of fluid had been evacuated from near his umbilicus. Of course, I was called and asked to admit him as his general surgeon. HOSPITAL COURSE: We admitted Margarito as above and we started him initially on daptomycin and Bactrim by mouth. I incised and drained his periumbilical wound at the bedside and of course we evacuated about 30 mL of pus. The cultures from the emergency room and my cultures the following morning have yet to come back with any growth. The Gram stain was unremarkable. We switched him over to cefepime and Flagyl that he has had now for four days. He is now markedly improved. We packed the wound with Dakin soaked gauze and each day he has gotten markedly better. Today, he has just a little bit of induration around the umbilicus from the surgery, but almost all the erythema is essentially gone. There is no warmth and there is no tenderness at this time. There is no drainage from the wound and there is no odor and so forth. All the other incisions are healing very nicely. He is tolerating diet and looks and feels much better. He is actually hoping to go home today. DISCHARGE PLANS AND MEDICATIONS: Margarito is going to be discharged to home with seven full days of Bactrim DS one p.o. b.i.d. as well as Augmentin 875 mg one p.o. b.i.d. We will give him oxycodone immediate release 5 mg tablets one p.o. q.6 hours p.r.n. for severe postoperative pain. We will Electronically Signed By: TRACEE VILLEGAS MD 04/22/24 0659 PATIENT NAME: MARGARITO MANUEL DISCHARGE SUMMARY DATE OF : 58 REPORT #: [id number] PHYSICIAN: TRACEE VILLEGAS MD PCP: MARCI MCCRARY MD REPORT IS CONFIDENTIAL AND NOT TO BE RELEASED WITHOUT AUTHORIZATION [address] [address] Signed dispense 15 tablets with no refills. He will resume all his chronic medications. He will simply cover the opening to the incision with a dry 2 x 2 gauze and some light tape. He knows he can shower and bathe directly into the wound as he has been doing here in the hospital. He will continue the mupirocin ointment on his skin twice a day around that area. He will resume all his chronic medications at home. He will take his regular diet as usual. We have asked him not to do any heavy pushing, pulling, and lifting over about 20 pounds. I have warned him now several times Prolene suture we used to close the umbilical fascial defect. Almost surely he will have a suture granuloma here in the months ahead. When that happens, we will go back and follow with that and we will remove the suture. He understands if we remove the suture now, he would simply have a hernia. I will have him back in the office in about 7 to 10 days for followup. He has expressed understanding and agrees with the above plan. Tracee Villegas MD ALB/MODL /[id number] cc: MD Marci Sr MD Copies: TRACEE VILLEGAS MD, ROBERT D DMD ~ Electronically Signed By: TRACEE VILLEGAS MD 04/22/24 0659 PATIENT NAME: MARGARITO MANUEL DISCHARGE SUMMARY DATE OF : 58 REPORT #: [id number] PHYSICIAN: TRACEE VILLEGAS MD PCP: MARCI MCCRARY MD REPORT IS CONFIDENTIAL AND NOT TO BE RELEASED WITHOUT AUTHORIZATION
== END 2024-04-21 10:35 | disposition home or self-care (01) | DRG 863 ==
LOC: ED 04:38 → MS 04:39
PROVIDERS: Family Medicine; ADMIT Colon & Rectal Surgery; ATTEND Colon & Rectal Surgery
DX: T81.49XA Infection following a procedure, other surgical site, initial encounter (principal); L03.311 Cellulitis of abdominal wall; L02.811 Cutaneous abscess of head [any part, except face]; E78.5 Hyperlipidemia, unspecified; J44.89 Other specified chronic obstructive pulmonary disease; K21.9 Gastro-esophageal reflux disease without esophagitis; E03.9 Hypothyroidism, unspecified; Z90.49 Acquired absence of other specified parts of digestive tract; Z98.890 Other specified postprocedural states; Z79.899 Other long term (current) drug therapy; Z79.890 Hormone replacement therapy; Z87.891 Personal history of nicotine dependence; Y83.8 Other surgical procedures as the cause of abnormal reaction of the patient, or of later complication, without mention of misadventure at the time of the procedure
CPT/HCPCS: 36415; 74177; 80053; 81003; 83735; 85025; 87070; 87075; 87205; 94640; 94667; 94760; 94762; 96375; 99284-25; A9270; J0692; J0878; J1170; J1650; J2405; J2543; J7030; J7121; Q9967